=== PATIENT | female | born 1975 | race Caucasian/White ===

== ENCOUNTER 2018-05-12 17:48 | Inpatient (IN) | payer OTHER ==
[2018-05-12] MEDS ORDERED: IBUPROFEN 600 MG TAB PO STA (18:06)
[2018-05-12] MEDS ORDERED: SODIUM CHLORIDE 0.9% 500 ML IV STA ×2 (18:06→20:33)
[2018-05-12] MEDS ORDERED: SODIUM CHLORIDE 0.9% 1,000 ML IV STA ×2 (18:06→20:33)
[2018-05-12] MEDS ORDERED: ACETAMINOPHEN TAB 500 MG TAB PO STA (18:06)
--- NOTE | 2018-05-12 18:08 | ED ---
General Adult HPI - General Chief complaint: Fever Stated complaint: BACK PAIN, POSS KIDNEY ISSUE Time Seen by Provider: 05/12/18 18:06 Source: patient, RN notes reviewed, old records reviewed Mode of arrival: ambulatory Limitations: no limitations - History of Present Illness Initial comments: This is a 42-year-old female the ER for evaluation today. Patient complaining of fever, bilateral flank pain. Cough. No recent travel history no known sick contacts. No further treatment for symptoms. A she has history of diabetes high cholesterol. Her gallbladder has been removed - Related Data Home Medications Medication Instructions Recorded Confirmed Bisoprolol-Hctz 5-6.25 mg [Ziac 1 tab PO DAILY 04/15/15 05/12/18 5-6.25] LORazepam [Ativan] 0.5 mg PO DAILY PRN 04/15/15 05/12/18 metFORMIN HCL [Glucophage] 500 mg PO HS 04/15/15 05/12/18 Azithromycin [Zithromax Z-pack] See Taper PO DIRECTED 05/12/18 05/12/18 Loratadine [Claritin] 10 mg PO DAILY 05/12/18 05/12/18 Ondansetron [Zofran ODT] 4 mg PO BID PRN 05/12/18 05/12/18 glipiZIDE [Glucotrol] 10 mg PO AC-BID 05/12/18 05/12/18 Allergies Allergy/AdvReac Type Severity Reaction Status Date / Time cat dander Allergy Dyspnea Verified 05/12/18 18:33 dog dander Allergy Dyspnea Verified 05/12/18 18:33 Review of Systems ROS Statement: Those systems with pertinent positive or pertinent negative responses have been documented in the HPI. ROS Other: All systems not noted in ROS Statement are negative. Past Medical History Past Medical History: Diabetes Mellitus, Hypertension, Osteoarthritis (OA) Additional Past Medical History / Comment(s): endimetriosis, kidney stones. restless leg, History of Any Multi-Drug Resistant Organisms: ESBL Date of last positivie culture/infection: 01/26/16-ESBL E.coli MDRO Source:: Urine Past Surgical History: Cholecystectomy Additional Past Surgical History / Comment(s): surgery for endometriosis 1997 Past Anesthesia/Blood Transfusion Reactions: No Reported Reaction Additional Past Anesthesia/Blood Transfusion Reaction / Comment(s): pt declines any blood or blood products Past Psychological History: No Psychological Hx Reported, Anxiety Smoking Status: Current some day smoker Past Alcohol Use History: Occasional Past Drug Use History: None Reported - Past Family History Father Family Medical History: Hyperlipidemia Mother Additional Family Medical History / Comment(s): aneurism of heart General Exam Limitations: no limitations General appearance: alert, in no apparent distress Head exam: Present: atraumatic, normocephalic, normal inspection Eye exam: Present: normal appearance, PERRL, EOMI. Absent: scleral icterus, conjunctival injection, periorbital swelling ENT exam: Present: normal exam, mucous membranes moist Neck exam: Present: normal inspection. Absent: tenderness, meningismus, lymphadenopathy Respiratory exam: Present: normal lung sounds bilaterally. Absent: respiratory distress, wheezes, rales, rhonchi, stridor Cardiovascular Exam: Present: regular rate, normal rhythm, normal heart sounds. Absent: systolic murmur, diastolic murmur, rubs, gallop, clicks GI/Abdominal exam: Present: soft, normal bowel sounds. Absent: distended, tenderness, guarding, rebound, rigid Extremities exam: Present: normal inspection, full ROM, normal capillary refill. Absent: tenderness, pedal edema, joint swelling, calf tenderness Back exam: Present: normal inspection Neurological exam: Present: alert, oriented X3, CN II-XII intact Psychiatric exam: Present: normal affect, normal mood Skin exam: Present: warm, dry, intact, normal color. Absent: rash Course Vital Signs 05/12/18 05/12/18 05/12/18 17:58 19:04 19:06 Temperature 100.8 F H 102.3 F H Pulse Rate 114 H 101 H Respiratory 18 18 Rate Blood Pressure 169/89 160/91 O2 Sat by Pulse 94 L 97 Oximetry 05/12/18 05/12/18 19:38 20:05 Temperature 100.6 F H Pulse Rate 105 H Respiratory 15 Rate Blood Pressure 141/88 O2 Sat by Pulse 95 Oximetry EKG Findings - EKG Comments: EKG Findings:: EKG shows sinus tachycardia rate of 104, MO 156, QRS 102, QTc 457 Medical Decision Making - Lab Data Result diagrams: 05/12/18 18:24 05/12/18 18:24 Lab Results 05/12/18 05/12/18 05/12/18 Range/Units 18:24 18:24 18:24 WBC 10.3 (3.8-10.6) k/uL RBC 4.81 (3.80-5.40) m/uL Hgb 13.5 (11.4-16.0) gm/dL Hct 43.9 (34.0-46.0) % MCV 91.2 (80.0-100.0) fL MCH 28.1 (25.0-35.0) pg MCHC 30.8 L (31.0-37.0) g/dL RDW 14.1 (11.5-15.5) % Plt Count 245 (150-450) k/uL Neutrophils % (Manual) 72 % Band Neutrophils % 1 % Lymphocytes % (Manual) 14 % Monocytes % (Manual) 13 % Neutrophils # (Manual) 7.50 (1.3-7.7) k/uL Lymphocytes # (Manual) 1.44 (1.0-4.8) k/uL Monocytes # (Manual) 1.34 H (0-1.0) k/uL Nucleated RBCs 0 (0-0) /100 WBC Manual Slide Review Performed RBC Morphology Normal PT (9.0-12.0) sec INR (<1.2) APTT (22.0-30.0) sec Sodium 132 L (137-145) mmol/L Potassium 4.3 (3.5-5.1) mmol/L Chloride 98 (98-107) mmol/L Carbon Dioxide 20 L (22-30) mmol/L Anion Gap 14 mmol/L BUN 20 H (7-17) mg/dL Creatinine 1.00 (0.52-1.04) mg/dL Est GFR (CKD-EPI)AfAm 80 (>60 ml/min/1.73 sqM) Est GFR (CKD-EPI)NonAf 70 (>60 ml/min/1.73 sqM) Glucose 543 H* (74-99) mg/dL POC Glucose (mg/dL) (75-99) mg/dL POC Glu Marketing Business Analyst ID Plasma Lactic Acid Robbin 1.9 (0.7-2.0) mmol/L Calcium 9.8 (8.4-10.2) mg/dL Phosphorus 2.1 L (2.5-4.5) mg/dL Magnesium 2.2 (1.6-2.3) mg/dL Total Bilirubin 1.2 (0.2-1.3) mg/dL AST 35 (14-36) U/L ALT 56 H (9-52) U/L Alkaline Phosphatase 220 H (38-126) U/L Total Protein 5.6 L (6.3-8.2) g/dL Albumin 3.1 L (3.5-5.0) g/dL Urine Color Urine Appearance (Clear) Urine pH (5.0-8.0) Ur Specific [place] (1.001-1.035) Urine Protein (Negative) Urine Glucose (UA) (Negative) Urine Ketones (Negative) Urine Blood (Negative) Urine Nitrite (Negative) Urine Bilirubin (Negative) Urine Urobilinogen (<2.0) mg/dL Ur Leukocyte Esterase (Negative) Urine RBC (0-5) /hpf Urine WBC (0-5) /hpf Urine WBC Clumps (None) /hpf Ur Squamous Epith Cells (0-4) /hpf Urine Bacteria (None) /hpf Urine Mucus (None) /hpf 05/12/18 05/12/18 05/12/18 Range/Units 18:24 18:24 20:16 WBC (3.8-10.6) k/uL RBC (3.80-5.40) m/uL Hgb (11.4-16.0) gm/dL Hct (34.0-46.0) % MCV (80.0-100.0) fL MCH (25.0-35.0) pg MCHC (31.0-37.0) g/dL RDW (11.5-15.5) % Plt Count (150-450) k/uL Neutrophils % (Manual) % Band Neutrophils % % Lymphocytes % (Manual) % Monocytes % (Manual) % Neutrophils # (Manual) (1.3-7.7) k/uL Lymphocytes # (Manual) (1.0-4.8) k/uL Monocytes # (Manual) (0-1.0) k/uL Nucleated RBCs (0-0) /100 WBC Manual Slide Review RBC Morphology PT 9.5 (9.0-12.0) sec INR 1.0 (<1.2) APTT 21.8 L (22.0-30.0) sec Sodium (137-145) mmol/L Potassium (3.5-5.1) mmol/L Chloride (98-107) mmol/L Carbon Dioxide (22-30) mmol/L Anion Gap mmol/L BUN (7-17) mg/dL Creatinine (0.52-1.04) mg/dL Est GFR (CKD-EPI)AfAm (>60 ml/min/1.73 sqM) Est GFR (CKD-EPI)NonAf (>60 ml/min/1.73 sqM) Glucose (74-99) mg/dL POC Glucose (mg/dL) 350 H (75-99) mg/dL POC Glu Marketing Business Analyst ID Lisette Harper Plasma Lactic Acid [place]bin (0.7-2.0) mmol/L Calcium (8.4-10.2) mg/dL Phosphorus (2.5-4.5) mg/dL Magnesium (1.6-2.3) mg/dL Total Bilirubin (0.2-1.3) mg/dL AST (14-36) U/L ALT (9-52) U/L Alkaline Phosphatase (38-126) U/L Total Protein (6.3-8.2) g/dL Albumin (3.5-5.0) g/dL Urine Color Light Yellow Urine Appearance Cloudy H (Clear) Urine pH 6.0 (5.0-8.0) Ur Specific [place] 1.012 (1.001-1.035) Urine Protein Trace H (Negative) Urine Glucose (UA) 4+ H (Negative) Urine Ketones Negative (Negative) Urine Blood Large H (Negative) Urine Nitrite Negative (Negative) Urine Bilirubin Negative (Negative) Urine Urobilinogen <2.0 (<2.0) mg/dL Ur Leukocyte Esterase Large H (Negative) Urine RBC 18 H (0-5) /hpf Urine WBC 84 H (0-5) /hpf Urine WBC Clumps Many H (None) /hpf Ur Squamous Epith Cells 3 (0-4) /hpf Urine Bacteria Moderate H (None) /hpf Urine Mucus Rare H (None) /hpf Disposition Clinical Impression: Acute pyelonephritis, Fever Disposition: ADMITTED IP TO THIS [facility] Condition: Fair Is patient prescribed a controlled substance at d/c from ED?: No Referrals: Ruth Zavala MD [Primary Care Provider] - 1-2 days
[2018-05-12 18:43] LABS: Appearance,Urine Cloudy (Clear); Bacteria,Urine Moderate /hpf; Bilirubin,Urine Negative (Negative); Blood,Urine Large (Negative); Color,Urine Light Yellow; Glucose,Urine (UA) 4+ (Negative); Ketones,Urine Negative (Negative); Leukocyte Esterase,Urine Large (Negative); Mucus,Urine Rare /hpf; Nitrite,Urine Negative (Negative); Protein,Urine Trace (Negative); RBC,Urine 18 /hpf (0-5); Specific Gravity,Urine 1.012 (1.001-1.035); Squamous Epithelial Cell,Urine 3 /hpf (0-4); Urobilinogen,Urine <2.0 mg/dL (<2.0); WBC,Urine 84 /hpf (0-5)
[2018-05-12 18:49] LABS: Albumin 3.1 g/dL (3.5-5.0); Calcium 9.8 mg/dL (8.4-10.2); Magnesium 2.2 mg/dL (1.6-2.3); Phosphorus 2.1 mg/dL (2.5-4.5); Potassium 4.3 mmol/L (3.5-5.1); Total Bilirubin 1.2 mg/dL (0.2-1.3); Total Protein 5.6 g/dL (6.3-8.2)
[2018-05-12 18:54] LABS: Prothrombin Time 9.5 sec (9.0-12.0)
[2018-05-12 18:55] LABS: HCT 43.9 % (34.0-46.0); HGB 13.5 gm/dL (11.4-16.0); MCH 28.1 pg (25.0-35.0); MCHC 30.8 g/dL (31.0-37.0); MCV 91.2 fL (80.0-100.0); Mean Platelet Volume 8.7; Platelet Count 245 k/uL (150-450); RBC 4.81 m/uL (3.80-5.40); RDW 14.1 % (11.5-15.5); WBC 10.3 k/uL (3.8-10.6)
--- NOTE | 2018-05-12 18:57 | XR ---
EXAMINATION TYPE: XR chest 2V DATE OF EXAM: 05/12/2018 COMPARISON: 04/16/2015 HISTORY: 42-year-old female with pain TECHNIQUE: PA and lateral views FINDINGS: Heart normal size. Aorta and pulmonary vasculature within normal limits. Slight elevation of the righ t hemidiaphragm is unchanged. No consolidation or pleural effusion. Mild interstitial prominence is u nchanged. IMPRESSION: Changes without acute cardiopulmonary process.
[2018-05-12] MEDS ORDERED: INSULIN REGULAR 100 UNIT/ML VIAL SQ ONE ×2 (19:14→19:32)
[2018-05-12] MEDS ORDERED: INSULIN REGULAR 100 UNIT/ML VIAL IV ONE (19:14)
[2018-05-12 19:15] LABS: Partial Thromboplastin Time 21.8 sec (22.0-30.0)
[2018-05-12] MEDS ORDERED: cefTRIAXone 2,000 MG in SODIUM CHLORIDE 0.9% 100 ML IVPB STA (19:20)
[2018-05-12] MEDS ORDERED: cefTRIAXone IN SWFI 2,000 MG/20 ML SYRINGE IVP STA (19:22)
[2018-05-12 19:24] LABS: Band Neutrophils % 1 %; Lymphocytes # (M) 1.44 k/uL (1.0-4.8); Monocytes # (M) 1.34 k/uL (0-1.0); Neutrophils % (M) 72 %; Nucleated Red Blood Cells 0 /100 WBC (0-0); Total Cells Counted 100
[2018-05-12 20:19] LABS: Glucose,Whole Blood 350 mg/dL (75-99)
--- NOTE | 2018-05-12 20:26 | CT ---
EXAMINATION TYPE: CT abdomen pelvis wo con DATE OF EXAM: 05/12/2018 COMPARISON: 01/25/2016 HISTORY: 42-year-old female Pain CT DLP: 1273 mGycm. Automated exposure control for dose reduction was used. TECHNIQUE: Contiguous axial scanning of the abdomen and pelvis without IV contrast. Coronal and sagit michelle reconstructions performed. FINDINGS: Heart normal size without pericardial effusion. Lung bases show strandy atelectasis. No pleural effus ion. Liver enlarged measuring 22.5 cm. Mildly diminished attenuation. Cholecystectomy clips. Adrenal glands, spleen, and pancreas show no gross abnormality by noncontrast CT. Borderline and mildly enlarged retroperitoneal lymph nodes measure up to 1.1 cm left periaortic regio n on a 1.2 cm precaval, 1.1 cm right retrocrural. These are increased from 01/25/2016. Bilateral perinephric stranding is present with mild bilateral pelvocaliectasis but no suspicious jacqueline cification seen along the course of either ureter. Punctate 1 mm nonobstructive calculus mid to lower pole left kidney. No dilated small bowel, free fluid, or free air. Mild stool burden. No pericolonic inflammatory change. Bladder is urine distended. Multiple pelvic phleboliths. A tampon is in place. No abnormal fluid su ection in the pelvis or pelvic lymphadenopathy. Uterus and both ovaries are visualized. Bones: Mild degenerative changes of the hips. No osseous destructive process. IMPRESSION: 1. Prominent bilateral perinephric stranding and mild bilateral pelvicaliectasis. Findings could rep resent sequela of recently passed stones or infection/pyelonephritis. Clinically correlate. 2. Punctate nonobstructive 1 mm left renal calculus. 3. Mildly enlarged retroperitoneal lymph nodes and an enlarged right retrocrural lymph node measurin g up to 1.2 cm, increased from 2016. Findings may be reactive/post inflammatory. 3 month follow-up CT to ensure stability/resolution.
[2018-05-12] MEDS ORDERED: SODIUM CHLORIDE 0.9% 1,000 ML IV ONE (20:32)
[2018-05-12] MEDS ORDERED: MORPHINE SULFATE 4 MG/ML SYRINGE IVP STA (20:33)
[2018-05-12] MEDS ORDERED: cefTRIAXone IN SWFI 1,000 MG/10 ML SYRINGE IVP SCH (21:00)
[2018-05-12 22:45] LABS: Glucose,Whole Blood 409 mg/dL (75-99)
[2018-05-13] MEDS ORDERED: PIPERACILLIN-TAZOBACTAM 3.375 GM in DEXTROSE/WATER 1 50ML.BAG IVPB SCH
[2018-05-13] MEDS: MORPHINE SULFATE 4 MG/ML SYRINGE IVP PRN ×5 (01:08→20:17)
[2018-05-13] MEDS: SODIUM CHLORIDE 0.9% 1,000 ML IV SCH ×3 (03:35→18:21)
[2018-05-13] MEDS: PIPERACILLIN-TAZOBACTAM 3.375 GM in DEXTROSE/WATER 1 50ML.BAG IVPB SCH ×3 (04:17→21:17)
[2018-05-13] MEDS ORDERED: ONDANSETRON 4 MG/2 ML VIAL IVP PRN (04:44)
[2018-05-13 07:22] LABS: Glucose,Whole Blood 396 mg/dL (75-99)
[2018-05-13] MEDS: INSULIN ASPART 100 UNIT/ML 1 ML 10 ML VIAL SQ SCH ×4 (07:30→21:24)
--- NOTE | 2018-05-13 08:47 | US ---
EXAMINATION TYPE: US kidneys/renal and bladder DATE OF EXAM: 05/13/2018 COMPARISON: 05/12/2018 CT abdomen pelvis CLINICAL HISTORY: ?pyleonephritis ?renal calculus - as per Dr Tamra . Hx renal infections. EXAM MEASUREMENTS: Right Kidney: 13.1 x 5.7 x 6.5 cm Left Kidney: 12.9 x 6.9 x 6.9 cm Right Kidney: No hydronephrosis or masses seen Left Kidney: No hydronephrosis or masses seen. The known 1 mm nonobstructive calculus in the mid to l ower pole of the left kidney is not seen sonographically. This was present on the prior CT abdomen pe lvis dated 05/12/2018. Bladder: distended, wnl as visualized Bilateral Jets not seen There is no evidence for hydronephrosis at this point in time. No nephrolithiasis is seen. No navdeep s are identified. The urinary bladder is anechoic. Bilateral ureteral jets are seen. IMPRESSION: 1. No hydronephrosis. The known left 1 mm renal calculus is not visualized sonographically. 2. No focal areas of decreased renal perfusion to indicate pyelonephritis sonographically, however th ere is increase sensitivity with enhanced CT.
[2018-05-13] MEDS ORDERED: cefTRIAXone IN SWFI 1,000 MG/10 ML SYRINGE IVP SCH (09:00)
[2018-05-13] MEDS: glipiZIDE 10 MG TAB PO SCH ×2 (09:26→17:26)
[2018-05-13] MEDS: BISOPROLOL-HCTZ 5-6.25 MG 1 EACH TAB PO SCH (10:33)
[2018-05-13] MEDS ORDERED: LORazepam 0.5 MG TAB PO PRN (10:58)
[2018-05-13] MEDS ORDERED: TEMAZEPAM 15 MG CAP PO PRN (10:59)
[2018-05-13] MEDS ORDERED: ALPRAZolam 0.25 MG TAB PO PRN (10:59)
[2018-05-13 11:16] LABS: Glucose,Whole Blood 366 mg/dL (75-99)
[2018-05-13] MEDS: PANTOPRAZOLE 40 MG/10 ML VIAL IVP SCH (11:35)
[2018-05-13] MEDS: HEPARIN SODIUM,PORCINE 5,000 UNIT/ML 1 ML VIAL SQ SCH ×2 (11:36→21:24)
[2018-05-13] MEDS: INSULIN DETEMIR 100 UNIT/ML 10 ML VIAL SQ SCH (11:36)
[2018-05-13] MEDS: NICOTINE 14MG/24HR PATCH TRANSDERM SCH (11:43)
[2018-05-13 11:53] LABS: Hemoglobin A1C 13.8 % (4.0-6.0)
--- NOTE | 2018-05-13 12:02 | HP ---
HISTORY AND PHYSICAL DATE OF SERVICE: 05/13/2018 CHIEF COMPLAINTS: Fever and back pain. HISTORY OF PRESENT ILLNESS: This 42-year-old woman with a past medical history of diabetes, hypertension, history of DJD, endometriosis being followed by Dr. Zavala in the outpatient setting, was complaining of back pain and fever last night. The pain was both low and both sides, left more than the right with some radiation on the left flank also. Patient also has some cough. Patient came to [facility]. Patient was found to be evidence of pyelonephritis. CT scan of the abdomen showed bilateral standing and as well as mildly enlarged retroperitoneal lymph nodes also slightly increased from 2006, possibly related to inflammation, to be followed up in the outpatient setting and ultrasound did not show the known left 1 mm renal calculus as well. The patient admitted and started on broad-spectrum IV antibiotics. There is no history any headache, loss of consciousness, chest pain, palpitations, shortness of breath, hematochezia or melena at this time. PAST MEDICAL HISTORY: Diabetes, hypertension, DJD, history of endometriosis, nephrolithiasis, anxiety, smoking. MEDICATION: 1. Glucophage 500 mg q.h.s. 2. Glucotrol 10 mg b.i.d. 3. Zofran 4 mg b.i.d. p.r.n. 4. Claritin 10 mg daily. 5. Ativan 0.5 mg daily p.r.n. 6. Ziac 5/6.25 mg p.o. daily. 7. Zithromax p.r.n. ALLERGIES: CAT DANDER AND DOG DANDER. FAMILY HISTORY: History of eye disorder, hyperlipidemia, cataracts. SOCIAL HISTORY: History of alcohol, history of smoking. REVIEW OF SYSTEMS: ENT: No diminished hearing and vision. CARDIOVASCULAR: No angina. RESPIRATORY: No cough. GI: No nausea. : No dysuria. NERVOUS SYSTEM: No numbness or weakness. ALLERGY/IMMUNOLOGY: No history of asthma. MUSCULOSKELETAL: As mentioned. HEMATOLOGY: As mentioned earlier. ENDOCRINE: As mentioned. CONSTITUTIONAL: As mentioned earlier. DERMATOLOGY: Negative. RHEUMATOLOGY: Negative. PSYCHIATRY: As mentioned earlier. PHYSICAL EXAMINATION: Alert, oriented x3. Pulse 97, blood pressure 127/84, respiration 14, temperature 99.9, pulse ox 98% on room air. HEENT: Conjunctivae normal. Oral mucosa moist. NECK: No jugular venous distention. No carotid bruit. No lymph node enlargement. CARDIOVASCULAR: S1, S2. RESPIRATORY: Breath sounds diminished in the bases. No rhonchi, no crackles. ABDOMEN: Soft. Mild diffuse tenderness present. No guarding. No rigidity. No mass palpable. LEGS: No edema, no swelling. NERVOUS SYSTEM: Higher functions as mentioned earlier. Moves all 4 limbs. No focal motor sensory deficits. LYMPHATICS: No lymphadenopathy in the neck, axillae, groin. SKIN: No ulcer, rash, bleeding. LABS: WBC 10.2, hemoglobin 13.2, sodium 132, glucose 543, and 396 and alkaline phosphatase 220. UA noted. ASSESSMENT: 1. Acute pyelonephritis with severe abdominal pain and back pain. 2. Possible nephrolithiasis. 3. Increased ALT. 4. Diabetes mellitus type 2 uncontrolled. 5. Hyponatremia. 6. Hypertension. 7. Degenerative joint disease. 8. Endometriosis. 9. History of cholecystectomy. 10.History of anxiety. 11.History of nicotine dependence. 12.Obesity with body mass index of 43.5. RECOMMENDATIONS AND DISCUSSION: This 42-year-old woman who presented with multiple complex medical issues, will monitor the patient closely. Continue the current management and symptomatic treatment. Pain medications, broad-spectrum IV antibiotics, follow the cultures. Infectious Disease and Nephrology has been consulted. Otherwise, we will continue to monitor blood sugars closely and I would also recommend starting Lantus and monitor blood sugars closely. Smoking cessation has been advised. Habitrol will be ordered. The overall prognosis guarded because of multiple complex medical issues. Medication reconciliation was also done. See orders for details. The patient understands and agrees. A copy of dictation forwarded to Dr. Zavala who is the primary physician. MMODL / IJN: [id number] /
[2018-05-13] MEDS: ACETAMINOPHEN TAB 325 MG TAB PO PRN ×2 (14:31→20:18)
[2018-05-13 15:27] VITALS: BMI 43.5
[2018-05-13 16:58] LABS: Glucose,Whole Blood 260 mg/dL (75-99)
--- NOTE | 2018-05-13 20:08 | P.CONS ---
History of Present Illness - Reason for Consult Consult date: 05/13/18 - Chief Complaint fever - History of Present Illness 42-year-old female who has a known history of diabetes and obesity follows in the outpatient clinic with her primary physician. She relates that she's not been feeling well for quite some time and has been trying to determine if her blood sugars have been part of the problem. She has been on metformin therapy which she relates does not make her feel well and has not been giving her good control of her blood sugars. She now presents to Hospital complaining of significant bilateral flank pain associate with fevers and chills as well as nausea and emesis, patient also was having dysuria. Endocrine the patient is feeling quite poorly still. This is the worst that she has felt in many years. She has markedly elevated blood sugar greater than 500 admission associated with dehydration and a urinary infection and flank pain. Appetite is poor but improving since she has had significant hydration and improvement of her blood sugar. She is very anxious about will occur when she goes to home. She relates that she lives in a family home and cares for her father although he has not an invalid. She does work for an [employer] as well as a local [employer]. Review of Systems 42-year-old woman feels poorly HEENT: Relates that her headache is improved since coming to hospital and has only minimal blurring of her vision Denies sinus or mouth discomforts. Denies neck stiffness or pain. Denies significant oral cavity pain. Denies difficulty on swallowing. Lungs: Denies significant shortness of breath, cough, sputum production, or hemoptysis. Cardiovascular: Denies significant shortness of breath, chest pain, chest wall pain, orthopnea, dyspnea on exertion, syncope Gastrointestinal: The severe nausea and emesis have improved since coming to hospital. She has no hematemesis melena or hematochezia. Musculoskeletal: denies significant myalgias or arthralgias. No new joint swelling. Denies new back pain. Skin: Denies new rash or lesions. No new ulcers or wounds are related.. Neuro: Denies any new onset weakness or difficulty with ambulation. Denies falls or seizures. Psychiatric: Is having some anxiety with her illness but does not complain of depression Endocrine: With her illness she became very fatigued and has weight gain. Past Medical History Past Medical History: Diabetes Mellitus, Hypertension, Osteoarthritis (OA) Additional Past Medical History / Comment(s): endimetriosis, kidney stones. restless leg, left temporal lobe abnormality History of Any Multi-Drug Resistant Organisms: ESBL Year Discovered:: 01/26/16-ESBL E.coli MDRO Source:: Urine Past Surgical History: Cholecystectomy Additional Past Surgical History / Comment(s): surgery for endometriosis 1997, kidney stones removed 2012 Past Anesthesia/Blood Transfusion Reactions: No Reported Reaction Additional Past Anesthesia/Blood Transfusion Reaction / Comm: pt declines any blood or blood products. Patient would rather not have any blood products. Past Psychological History: Anxiety Additional Psychological History / Comment(s): She is single and relates that she's never been . She has no children. Works in [employer] home. Tobacco smoker till last week. Denies significant alcohol or recreational drug use. No experience. No international travel. No animal exposures Smoking Status: Current some day smoker Past Alcohol Use History: Occasional Additional Past Alcohol Use History / Comment(s): less than 5 per month Past Drug Use History: None Reported - Past Family History Father Family Medical History: Eye Disorder, Hyperlipidemia Additional Family Medical History / Comment(s): cataracts Mother Additional Family Medical History / Comment(s): of aneurysm of heart 1995 Medications and Allergies Home Medications and Allergies Comment(s): Current Medications Acetaminophen (Tylenol Tab) 325 mg PO Q6HR PRN PRN Reason: Fever and/ or Pain Last Admin: 05/13/18 14:31 Dose: 325 mg Hydrocodone Bitart/Acetaminophen ([place] 5-325) 1 each PO Q6HR PRN PRN Reason: Pain Alprazolam (Xanax) 0.25 mg PO TID PRN PRN Reason: Anxiety Bisoprolol Fumarate (Ziac 5-6.25) 1 each PO DAILY [facility] Last Admin: 05/13/18 10:33 Dose: 1 each Glipizide (Glucotrol) 10 mg PO AC-BID [facility] Last Admin: 05/13/18 17:26 Dose: 10 mg Heparin Sodium (Porcine) (Heparin) 5,000 unit SQ Q12HR [facility] Last Admin: 05/13/18 11:36 Dose: 5,000 unit Sodium Chloride (Saline 0.9%) 1,000 mls @ 100 mls/hr IV .Q10H [facility] Last Admin: 05/13/18 18:21 Dose: 100 mls/hr Piperacillin/Tazobactam/ (Dextrose 3.375 gm/ IV Solution) 50 mls @ 12.5 mls/hr IVPB Q8HR@0400,1200,2000 [facility] Last Admin: 05/13/18 11:54 Dose: 12.5 mls/hr Insulin Aspart (Novolog) 0 unit SQ ACHS [facility]; Protocol Last Admin: 05/13/18 17:26 Dose: 6 unit Insulin Detemir (Levemir) 20 unit SQ DAILY [facility] Last Admin: 05/13/18 11:36 Dose: 20 unit Loratadine (Claritin) 10 mg PO DAILY [facility] Lorazepam (Ativan) 0.5 mg PO DAILY PRN PRN Reason: Anxiety Metformin HCl (Glucophage) 500 mg PO HS [facility] Morphine Sulfate (Morphine Sulfate (Inj)) 4 mg IVP Q4HR PRN PRN Reason: Moderate Pain Last Admin: 05/13/18 16:30 Dose: 4 mg Nicotine (Habitrol 14mg/24hr Patch) 1 patch TRANSDERM DAILY [facility] Last Admin: 05/13/18 11:43 Dose: Not Given Ondansetron HCl (Zofran) 4 mg IVP Q6HR PRN PRN Reason: Nausea And Vomiting Pantoprazole Sodium (Protonix) 40 mg IVP DAILY [facility] Last Admin: 05/13/18 11:35 Dose: 40 mg Temazepam (Restoril) 15 mg PO HS PRN PRN Reason: Insomnia Home Medications Medication Instructions Recorded Confirmed Type Bisoprolol-Hctz 5-6.25 mg [Ziac 1 tab PO DAILY 04/15/15 05/12/18 History 5-6.25] LORazepam [Ativan] 0.5 mg PO DAILY PRN 04/15/15 05/12/18 History metFORMIN HCL [Glucophage] 500 mg PO HS 04/15/15 05/12/18 History Azithromycin [Zithromax Z-pack] See Taper PO DIRECTED 05/12/18 05/12/18 History Loratadine [Claritin] 10 mg PO DAILY 05/12/18 05/12/18 History Ondansetron [Zofran ODT] 4 mg PO BID PRN 05/12/18 05/12/18 History glipiZIDE [Glucotrol] 10 mg PO AC-BID 08/05/18 08/05/18 History Allergies Allergy/AdvReac Type Severity Reaction Status Date / Time cat dander Allergy Dyspnea Verified 05/12/18 18:33 dog dander Allergy Dyspnea Verified 05/12/18 18:33 Physical Exam Vitals: Vital Signs Temp Pulse Pulse Resp BP BP Pulse Ox 05/13/18 14:29 91 14 117/78 05/13/18 14:06 100 F H 98 16 153/113 91 L 05/13/18 07:00 99.9 F H 97 14 127/84 93 L 05/13/18 03:25 98.7 F 68 16 122/68 98 05/13/18 00:11 99 F 65 17 139/68 95 05/12/18 20:56 90 16 138/82 100 05/12/18 20:51 100.6 F H 05/12/18 20:05 100.6 F H Intake and Output 05/13/18 05/13/18 05/13/18 06:59 14:59 22:59 Intake Total 1630 870 Balance 1630 870 Intake: Intake, IV Titration 550 750 Amount Piperacillin-Tazobactam 3 50 50 .375 gm In Dextrose/Water 1 50ml.bag @ 12.5 mls/hr IVPB Q8HR [facility] Rx#: [id number] Sodium Chloride 0.9% 1, 700 000 ml @ 100 mls/hr IV . Q10H [facility] Rx#:[id number] Sodium Chloride 0.9% 500 500 ml @ 999 mls/hr IV .Q31M [facility] Rx#:[id number] Oral 1080 120 Other: Voiding Method Toilet # Voids 2 2 Weight 126.099 kg 42-year-old female who suffers from significant obesity and still feels very poorly. HEENT: Anicteric conjunctiva are pink and moist nasal mucosa grossly intact without significant lesions, there is no thrush. There are no significant oral lesions Neck: The neck is supple without significant lymphadenopathy or thyromegaly. Lungs: Good bilateral air entry without significant crackles or wheezing. There is no significant bronchial sounds. There is no egophony or dullness. Heart: Regular rate and rhythm with an audible S1-S2, no S3 no S4. There is no significant murmur click or rub, PMI was nondisplaced. Abdomen: Obese, Positive bowel sounds soft and nontender without palpable masses or organomegaly. There was no guarding or rebound. Extremities: The upper extremities have excellent pulses they are symmetric, no significant petechiae or telangiectasia. No splinter hemorrhages were noted. Lower extremities have trace bilateral pedal edema without significant open ulcerations at this time Neuro: Awake alert oriented to person place and time. There are no acute new gross focal sensory motor deficits. Results CBC & Chem 7: 05/12/18 18:24 05/12/18 18:24 Labs: Abnormal Lab Results - Last 24 Hours (Table) 05/12/18 05/12/18 05/12/18 Range/Units 18:24 20:16 22:42 POC Glucose (mg/dL) 350 H 409 H (75-99) mg/dL Hemoglobin A1c 13.8 H (4.0-6.0) % 05/13/18 05/13/18 05/13/18 Range/Units 06:44 11:12 16:44 POC Glucose (mg/dL) 396 H 366 H 260 H (75-99) mg/dL Hemoglobin A1c (4.0-6.0) % Microbiology - Last 24 Hours (Table) 05/13/18 00:08 Urine Culture - Preliminary Urine,Clean Catch 05/12/18 18:24 Urine Culture - Preliminary Urine,Voided Laboratory Results WBC 10.3 k/uL (3.8-10.6) 05/12/18 18:24 RBC 4.81 m/uL (3.80-5.40) 05/12/18 18:24 Hgb 13.5 gm/dL (11.4-16.0) 05/12/18 18:24 Hct 43.9 % (34.0-46.0) 05/12/18 18:24 MCV 91.2 fL (80.0-100.0) 05/12/18 18:24 MCH 28.1 pg (25.0-35.0) 05/12/18 18:24 MCHC 30.8 g/dL (31.0-37.0) L 05/12/18 18:24 RDW 14.1 % (11.5-15.5) 05/12/18 18:24 Plt Count 245 k/uL (150-450) 05/12/18 18:24 Neutrophils % (Manual) 72 % 05/12/18 18:24 Band Neutrophils % 1 % 05/12/18 18:24 Lymphocytes % (Manual) 14 % 05/12/18 18:24 Monocytes % (Manual) 13 % 05/12/18 18:24 Neutrophils # (Manual) 7.50 k/uL (1.3-7.7) 05/12/18 18:24 Lymphocytes # (Manual) 1.44 k/uL (1.0-4.8) 05/12/18 18:24 Monocytes # (Manual) 1.34 k/uL (0-1.0) H 05/12/18 18:24 Nucleated RBCs 0 /100 WBC (0-0) 05/12/18 18:24 Manual Slide Review Performed 05/12/18 18:24 RBC Morphology Normal 05/12/18 18:24 PT 9.5 sec (9.0-12.0) 05/12/18 18:24 INR 1.0 (<1.2) 05/12/18 18:24 APTT 21.8 sec (22.0-30.0) L 05/12/18 18:24 Sodium 132 mmol/L (137-145) L 05/12/18 18:24 Potassium 4.3 mmol/L (3.5-5.1) 05/12/18 18:24 Chloride 98 mmol/L (98-107) 05/12/18 18:24 Carbon Dioxide 20 mmol/L (22-30) L 05/12/18 18:24 Anion Gap 14 mmol/L 05/12/18 18:24 BUN 20 mg/dL (7-17) H 05/12/18 18:24 Creatinine 1.00 mg/dL (0.52-1.04) 05/12/18 18:24 Est GFR (CKD-EPI)AfAm 80 (>60 ml/min/1.73 sqM) 05/12/18 18:24 Est GFR (CKD-EPI)NonAf 70 (>60 ml/min/1.73 sqM) 05/12/18 18:24 Glucose 543 mg/dL (74-99) H* 05/12/18 18:24 POC Glucose (mg/dL) 260 mg/dL (75-99) H 05/13/18 16:44 POC Glu Flavor Room Worker ID 05/13/18 16:[address] Glu mg/dL 349 05/12/18 18:24 Hemoglobin A1c 13.8 % (4.0-6.0) H 05/12/18 18:24 Plasma Lactic Acid [place] 1.9 mmol/L (0.7-2.0) 05/12/18 18:24 Calcium 9.8 mg/dL (8.4-10.2) 05/12/18 18:24 Phosphorus 2.1 mg/dL (2.5-4.5) L 05/12/18 18:24 Magnesium 2.2 mg/dL (1.6-2.3) 05/12/18 18:24 Total Bilirubin 1.2 mg/dL (0.2-1.3) 05/12/18 18:24 AST 35 U/L (14-36) 05/12/18 18:24 ALT 56 U/L (9-52) H 05/12/18 18:24 Alkaline Phosphatase 220 U/L (38-126) H 05/12/18 18:24 Total Protein 5.6 g/dL (6.3-8.2) L 05/12/18 18:24 Albumin 3.1 g/dL (3.5-5.0) L 05/12/18 18:24 HCG, Qual Not Detected 05/12/18 18:24 Urine Color Light Yellow 05/12/18 18:24 Urine Appearance Cloudy (Clear) H 05/12/18 18:24 Urine pH 6.0 (5.0-8.0) 05/12/18 18:24 Ur Specific [place] 1.012 (1.001-1.035) 05/12/18 18:24 Urine Protein Trace (Negative) H 05/12/18 18:24 Urine Glucose (UA) 4+ (Negative) H 05/12/18 18:24 Urine Ketones Negative (Negative) 05/12/18 18:24 Urine Blood Large (Negative) H 05/12/18 18:24 Urine Nitrite Negative (Negative) 05/12/18 18:24 Urine Bilirubin Negative (Negative) 05/12/18 18:24 Urine Urobilinogen <2.0 mg/dL (<2.0) 05/12/18 18:24 Ur Leukocyte Esterase Large (Negative) H 05/12/18 18:24 Urine RBC 18 /hpf (0-5) H 05/12/18 18:24 Urine WBC 84 /hpf (0-5) H 05/12/18 18:24 Urine WBC Clumps Many /hpf (None) H 05/12/18 18:24 Ur Squamous Epith Cells 3 /hpf (0-4) 05/12/18 18:24 Urine Bacteria Moderate /hpf (None) H 05/12/18 18:24 Urine Mucus Rare /hpf (None) H 05/12/18 18:24 Microbiology 05/12/18 18:24 Urine,Voided Urine Culture - Preliminary Gram Neg Bacilli 05/13/18 00:08 Urine,Clean Catch Urine Culture - Preliminary Assessment and Plan (1) Acute pyelonephritis Narrative/Plan: 42-year-old female who has a long-standing history of obesity and poorly controlled diabetes mellitus type 2 presents to hospital with evidence of significant sepsis from the urinary tract infection and what appears to be polynephritis. The patient started to feel somewhat better since she has been brought to the hospital and receiving hydration, glucose control and antibiotic therapy. At this time gram-negative bacilli have been found in the urine culture and blood cultures are pending at this time. Receiving intravenous antibiotic therapy with Zosyn at this time given the prior urine culture given the evidence of prior cultures that show evidence of resistance to quinolones, sulfa as well as Rocephin. We'll monitor the patient and her response to therapy, may require outpatient intravenous antibiotic therapy if there are no oral options for her infection. She understands the importance of glucose control. However she apparently did not do well with the dietitian today, relating that she will not be told what to do her scolded because of her dietary choices by anybody. She 43-year-old woman and doesn't have to listen to anybody. The patient is counseled that it would be very worthwhile to at least try to have an open mind to the diabetes team to improve her glucose control and overall health. With hydration the patient's current hyperglycemia is improving, she is not having evidence of significant acute renal failure but hemoglobin A1c is at 13.8. Current Visit: Yes Status: Acute Code(s): N10 - ACUTE PYELONEPHRITIS SNOMED Code(s): 82626265 (2) Gram-negative infection Current Visit: Yes Status: Acute Code(s): A49.9 - BACTERIAL INFECTION, UNSPECIFIED SNOMED Code(s): 162723716 (3) Uncontrolled type 2 diabetes mellitus Current Visit: Yes Status: Acute Code(s): E11.65 - TYPE 2 DIABETES MELLITUS WITH HYPERGLYCEMIA SNOMED Code(s): 79303600 (4) Obesity Current Visit: Yes Status: Acute Code(s): E66.9 - OBESITY, UNSPECIFIED SNOMED Code(s): 618567806
[2018-05-13 20:45] LABS: Glucose,Whole Blood 257 mg/dL (75-99)
[2018-05-13] MEDS: metFORMIN 500 MG TAB PO SCH (21:24)
[2018-05-14] MEDS: MORPHINE SULFATE 4 MG/ML SYRINGE IVP PRN ×6 (00:18→23:32)
[2018-05-14] MEDS: HYDROcodone/APAP 5-325MG 1 EACH TAB PO PRN ×2 (01:00→07:34)
--- NOTE | 2018-05-14 02:35 | CONS ---
CONSULTATION DATE OF SERVICE: 05/13/2018. REASON FOR CONSULT: Nephrolithiasis. HISTORY OF PRESENT ILLNESS: The patient is a 42-year-old female who was admitted yesterday from the emergency room with complaints of severe back pain. She also had fever. She had bilateral flank pain. It was radiating to the groin. The patient denied any obvious blood in her urine. She has had a history of kidney stones. PAST MEDICAL HISTORY: Type 2 diabetes, hypertension, osteoarthritis, endometriosis, nephrolithiasis, restless legs syndrome, history of UTI in 2016, ESBL E coli. PAST SURGICAL HISTORY: Cholecystectomy, surgery for endometriosis. SOCIAL HISTORY: Patient is a smoker. No history of drug abuse or alcohol abuse. MEDICATIONS: Medications at home prior to admission included: 1. Glucophage. 2. Zithromax. 3. Claritin. 4. Glucotrol. 5. Ativan. 6. Bisoprolol hydrochlorothiazide which is Ziac. ALLERGIES: Include no medications. The patient is allergic to dogs and cats. REVIEW OF SYSTEMS: As per HPI. Other systems negative. EXAMINATION: Patient is currently comfortable. She is sleeping. She is not in any acute distress. Blood pressure is 127/84 this morning, heart rate 97 per minute, she has a temp of 99.9. Examination of the heart S1, S2. Examination of lungs, bilateral breath sounds are heard. Abdomen is soft. Mild tenderness noted in the lower abdomen. Mild flank pain is noted bilaterally. Examination of lower extremities shows no significant edema. [place] exam is grossly intact. LABS: Reveal a serum creatinine of 1.0, BUN 20, sodium 132, potassium 4.3, hemoglobin 13.5 g/dL, calcium 9.8, phosphorus 2.1. UA shows 4+ glucose, protein trace, WBC clumps and WBCs were noted. Urine culture is growing Gram-negative bacilli. CT scan shows prominent bilateral perinephric stranding with mild bilateral pelviectasis, nonobstructive 1 mm left renal calculus. ASSESSMENT: 1. Nephrolithiasis with underlying urinary tract infection with mild bilateral pelviectasis noted. Currently maintained on IV antibiotics. I will continue with IV hydration as well. I agree with ID consult. If pain does not improve, we will proceed with Urology consult as well. 2. Nephrolithiasis. The patient will need a 24-hour urine for stone profile. This will be done down the road once the acute episode has subsided. In the meantime, patient is advised regarding aggressive hydration and avoiding high salt diet. 3. Type 2 diabetes. 4. Obesity. 5. Hypertension, occasionally uncontrolled secondary to pain. PLAN: Continue with IV fluids. Continue with antibiotics. The patient will need 24-hour urine for stone profile down the road as outpatient. Consider Urology consult if symptoms not improved in the next day. Thank you for this consultation. We will continue to follow the patient with you during her hospitalization. MMODL / IJN: [id number] /
[2018-05-14] MEDS: SODIUM CHLORIDE 0.9% 1,000 ML IV SCH ×2 (03:41→18:42)
[2018-05-14] MEDS: PIPERACILLIN-TAZOBACTAM 3.375 GM in DEXTROSE/WATER 1 50ML.BAG IVPB SCH ×3 (03:41→20:55)
[2018-05-14 06:53] LABS: Glucose,Whole Blood 223 mg/dL (75-99)
[2018-05-14 07:20] LABS: Anion Gap 12 mmol/L; Blood Urea Nitrogen 17 mg/dL (7-17); Calcium 9.6 mg/dL (8.4-10.2); Carbon Dioxide 18 mmol/L (22-30); Chloride 106 mmol/L (98-107); Glucose 213 mg/dL (74-99); Sodium 136 mmol/L (137-145)
[2018-05-14] MEDS: glipiZIDE 10 MG TAB PO SCH ×2 (07:28→18:27)
[2018-05-14] MEDS: INSULIN ASPART 100 UNIT/ML 1 ML 10 ML VIAL SQ SCH ×4 (07:28→21:03)
[2018-05-14 07:43] LABS: HCT 37.1 % (34.0-46.0); HGB 12.1 gm/dL (11.4-16.0); MCH 29.6 pg (25.0-35.0); MCHC 32.5 g/dL (31.0-37.0); MCV 90.9 fL (80.0-100.0); Mean Platelet Volume 7.6; Platelet Count 302 k/uL (150-450); RBC 4.08 m/uL (3.80-5.40); RDW 14.2 % (11.5-15.5); WBC 13.3 k/uL (3.8-10.6)
[2018-05-14] MEDS: INSULIN DETEMIR 100 UNIT/ML 10 ML VIAL SQ SCH (09:12)
[2018-05-14] MEDS: HEPARIN SODIUM,PORCINE 5,000 UNIT/ML 1 ML VIAL SQ SCH ×2 (09:14→20:34)
[2018-05-14] MEDS: BISOPROLOL-HCTZ 5-6.25 MG 1 EACH TAB PO SCH (09:16)
[2018-05-14] MEDS: LORATADINE 10 MG TAB PO SCH (09:17)
[2018-05-14] MEDS: PANTOPRAZOLE 40 MG/10 ML VIAL IVP SCH ×2 (09:25→20:36)
[2018-05-14 10:52] LABS: Band Neutrophils % 1 %; Eosinophils # (M) 0.27 k/uL (0-0.7); Lymphocytes # (M) 1.46 k/uL (1.0-4.8); Metamyelocytes # (M) 0.13 k/uL (0); Metamyelocytes % 1 %; Monocytes # (M) 1.86 k/uL (0-1.0); Myelocytes # (M) 0.13 k/uL (0); Myelocytes % 1 %; Neutrophils % (M) 70 %; Nucleated Red Blood Cells 0 /100 WBC (0-0); Total Cells Counted 200
[2018-05-14 10:53] LABS: Toxic Granulation Present
[2018-05-14 11:59] LABS: Glucose,Whole Blood 196 mg/dL (75-99)
--- NOTE | 2018-05-14 13:03 | PN ---
PROGRESS NOTE DATE OF SERVICE: 05/14/2018 This 42-year-old woman who was admitted with acute pyelonephritis also complaining of back pain at this time. Patient also had epigastric pain also. Cultures are showing gram-negative bacilli. Nephrology and Infectious Disease is following the patient closely. No chest pain. No palpitations. No fever. PHYSICAL EXAMINATION: On exam, alert and oriented x3. The pulse is 94, blood pressure 133/89, respiration 16, temperature 100.1, pulse ox 91% on room air. HEENT: Conjunctivae normal. Oral mucosa moist. NECK: No jugular venous distention. No carotid bruit. No lymph node enlargement. CARDIOVASCULAR: S1 and s2 muffled. RESPIRATORY: Breath sounds diminished at the bases. No rhonchi, no crackles. ABDOMEN: Soft, minimal diffuse tenderness in the left loin area and some discomfort in the epigastrium. No guarding. No rigidity. No mass palpable. Bowel sounds present. LEGS: No edema, no swelling. NERVOUS SYSTEM: Higher functions as mentioned earlier. Moves all 4 limbs. No focal motor or sensory deficits. LYMPHATICS: No lymphadenopathy of the neck, axillae or groin. SKIN: No ulcer, rash or bleeding. LABS: Labs are glucose 213, sodium 136 and WBC 13.3. ASSESSMENT: 1. Acute pyelonephritis with severe abdominal pain with back pain with possible early sepsis. 2. Possible nephrolithiasis. 3. Increased ALT. 4. Diabetes type 2 uncontrolled. 5. Hyponatremia. 6. Hypertension. 7. Degenerative joint disease. 8. Endometriosis. 9. History of cholecystectomy. 10.History of anxiety. 11.History of nicotine dependence. 12.Obesity with body mass index of 43.5. RECOMMENDATION AND DISCUSSION: Recommend to continue current medications, continue with monitoring and symptomatic treatment. Otherwise at this time I would recommend continue the antibiotics. Follow the cultures. Closely monitor. Guarded prognosis. Further recommendations to follow. MMODL / IJN: [id number] /
--- NOTE | 2018-05-14 13:21 | PN ---
PROGRESS NOTE PROGRESS NOTE ADDENDUM REVIEW OF SYSTEMS: CARDIOVASCULAR SYSTEM: No angina. RESPIRATORY SYSTEM: As mentioned earlier. GI: As mentioned earlier. : As mentioned earlier. MEDICATIONS: Current medications are reviewed and include: 1. Tylenol 325 q.6 p.r.n. 2. [place] 5 mg q.6 p.r.n. 3. Xanax 0.25 t.i.d. 4. Ziac one p.o. daily. 5. Glucotrol 10 mg b.i.d. 6. Heparin 5000 b.i.d. 7. NovoLog scale. 8. Levemir 20 units daily. 9. Claritin 10 mg daily. 10.Ativan 0.5 mg daily. 11.Glucophage 500 mg at bedtime. 12.Morphine sulfate. 13.Habitrol 14. 14.Zofran. 15.Protonix 40 mg IV daily. 16.Zosyn 3.375 IV q.8. 17.Restoril 15 mg at bedtime p.r.n. MMSOPHIAL / NEEMAN: [id number] /
--- NOTE | 2018-05-14 15:51 | P.GSCN ---
History of Present Illness Consult date: 05/14/18 History of present illness: this 42-year-old female was admitted the hospital for treatment of presumed pyelonephritis. She states about 10 days ago she started developing fever. The fever persisted she had chills and back pain. She went to see her primary doctor who thought she had the flu or upper respiratory infection. She isKa laced on Zithromax. She didn't get better and ended up in the emergency room on Sunday. Beth Montero. She is admitted to the hospital for IV hydration and parenteral antibiotics. Cultures have been obtained. She had a computed tomography scan identifying a 1 mm nonobstructing left renal stone. There is no notable hydronephrosis. The patient urine doesn't look infected. She does have a history of stones. She states that she had a stone basketing 2012 and a spontaneous passage of the stone in 2015 both treated by she has been in the hospital for 36 hours and states that she still has fever and back pain. Review of Systems - Constitutional Reports chronic pain, Reports fever, Reports lethargy - Gastrointestinal Reports as per HPI, Reports abdominal pain - Genitourinary Genitourinary: Reports as per HPI Past Medical History Past Medical History: Diabetes Mellitus, Hypertension, Osteoarthritis (OA) Additional Past Medical History / Comment(s): endimetriosis, kidney stones. restless leg, left temporal lobe abnormality History of Any Multi-Drug Resistant Organisms: ESBL Year Discovered:: 01/26/16-ESBL E.coli MDRO Source:: Urine Past Surgical History: Cholecystectomy Additional Past Surgical History / Comment(s): surgery for endometriosis 1997, kidney stones removed 2012 Past Anesthesia/Blood Transfusion Reactions: No Reported Reaction Additional Past Anesthesia/Blood Transfusion Reaction / Comm: pt declines any blood or blood products. Patient would rather not have any blood products. Past Psychological History: Anxiety Additional Psychological History / Comment(s): She is single and relates that she's never been . She has no children. Works in [employer] home. Tobacco smoker till last week. Denies significant alcohol or recreational drug use. No experience. No international travel. No animal exposures Smoking Status: Current some day smoker Past Alcohol Use History: Occasional Additional Past Alcohol Use History / Comment(s): less than 5 per month Past Drug Use History: None Reported - Past Family History Father Family Medical History: Eye Disorder, Hyperlipidemia Additional Family Medical History / Comment(s): cataracts Mother Additional Family Medical History / Comment(s): of aneurysm of heart 1996 Medications and Allergies Home Medications Medication Instructions Recorded Confirmed Type Bisoprolol-Hctz 5-6.25 mg [Ziac 1 tab PO DAILY 04/15/15 05/12/18 History 5-6.25] LORazepam [Ativan] 0.5 mg PO DAILY PRN 04/15/15 05/12/18 History metFORMIN HCL [Glucophage] 500 mg PO HS 04/15/15 05/12/18 History Azithromycin [Zithromax Z-pack] See Taper PO DIRECTED 05/12/18 05/12/18 History Loratadine [Claritin] 10 mg PO DAILY 05/12/18 05/12/18 History Ondansetron [Zofran ODT] 4 mg PO BID PRN 05/12/18 05/12/18 History glipiZIDE [Glucotrol] 10 mg PO AC-BID 05/12/18 05/12/18 History Allergies Allergy/AdvReac Type Severity Reaction Status Date / Time cat dander Allergy Dyspnea Verified 05/12/18 18:33 dog dander Allergy Dyspnea Verified 05/12/18 18:33 Surgical - Exam Vital Signs Temp Pulse Resp BP Pulse Ox 100.8 F H 114 H 18 169/89 94 L 05/12/18 17:58 05/12/18 17:58 05/12/18 17:58 05/12/18 17:58 05/12/18 17:58 - General well developed, obese - Eyes PERRL - ENT no hearing loss - Neck trachea midline - Respiratory normal expansion, normal respiratory effort - Cardiovascular Rhythm: regular - Abdomen Abdomen: soft, non tender - Integumentary no rash, no growths - Neurologic normal coordination, normal sensation - Musculoskeletal normal posture - Psychiatric oriented to time, oriented to person, oriented to place, memory intact Results - Labs 05/14/18 06:22 05/14/18 06:22 Abnormal Lab Results - Last 24 Hours (Table) 05/13/18 05/13/18 05/14/18 Range/Units 16:44 20:43 06:22 WBC 13.3 H (3.8-10.6) k/uL Neutrophils # (Manual) 9.40 H (1.3-7.7) k/uL Monocytes # (Manual) 1.86 H (0-1.0) k/uL Metamyelocytes # (Man) 0.13 H (0) k/uL Myelocytes # (Manual) 0.13 H (0) k/uL Sodium (137-145) mmol/L Carbon Dioxide (22-30) mmol/L Glucose (74-99) mg/dL POC Glucose (mg/dL) 260 H 257 H (75-99) mg/dL 05/14/18 05/14/18 05/14/18 Range/Units 06:22 06:52 11:56 WBC (3.8-10.6) k/uL Neutrophils # (Manual) (1.3-7.7) k/uL Monocytes # (Manual) (0-1.0) k/uL Metamyelocytes # (Man) (0) k/uL Myelocytes # (Manual) (0) k/uL Sodium 136 L (137-145) mmol/L Carbon Dioxide 18 L (22-30) mmol/L Glucose 213 H (74-99) mg/dL POC Glucose (mg/dL) 223 H 196 H (75-99) mg/dL Microbiology - Last 24 Hours (Table) 05/13/18 11:07 Blood Culture - Preliminary Blood No Growth after 24 hours 05/13/18 00:08 Urine Culture - Final Urine,Clean Catch 05/12/18 18:24 Urine Culture - Preliminary Urine,Voided Gram Neg Bacilli Diabetes panel 05/14/18 Range/Units 06:22 Sodium 136 L (137-145) mmol/L Potassium 4.0 (3.5-5.1) mmol/L Chloride 106 (98-107) mmol/L Carbon Dioxide 18 L (22-30) mmol/L BUN 17 (7-17) mg/dL Creatinine 0.87 (0.52-1.04) mg/dL Glucose 213 H (74-99) mg/dL Calcium 9.6 (8.4-10.2) mg/dL Calcium panel 05/14/18 Range/Units 06:22 Calcium 9.6 (8.4-10.2) mg/dL Pituitary panel 05/14/18 Range/Units 06:22 Sodium 136 L (137-145) mmol/L Potassium 4.0 (3.5-5.1) mmol/L Chloride 106 (98-107) mmol/L Carbon Dioxide 18 L (22-30) mmol/L BUN 17 (7-17) mg/dL Creatinine 0.87 (0.52-1.04) mg/dL Glucose 213 H (74-99) mg/dL Calcium 9.6 (8.4-10.2) mg/dL Adrenal panel 05/14/18 Range/Units 06:22 Sodium 136 L (137-145) mmol/L Potassium 4.0 (3.5-5.1) mmol/L Chloride 106 (98-107) mmol/L Carbon Dioxide 18 L (22-30) mmol/L BUN 17 (7-17) mg/dL Creatinine 0.87 (0.52-1.04) mg/dL Glucose 213 H (74-99) mg/dL Calcium 9.6 (8.4-10.2) mg/dL - Imaging CT scan - abdomen: report reviewed, image reviewed CT scan - pelvis: report reviewed, image reviewed Assessment and Plan Assessment: impression: Probable pyelonephritis right. History of kidney stone with tiny coincidentally identified left renal stone. Recommendations: The patient is on IV antibiotics. Infectious disease, Dr. Vences has been consulted. Nothing urologic needs to be done.
[2018-05-14 16:48] LABS: Glucose,Whole Blood 209 mg/dL (75-99)
[2018-05-14] MEDS: metFORMIN 500 MG TAB PO SCH (20:34)
[2018-05-14] MEDS: DOCUSATE 100 MG CAP PO SCH (20:34)
[2018-05-14] MEDS: KETOROLAC 30 MG/ML 1 ML VIAL IVP SCH (20:34)
[2018-05-14 21:04] LABS: Glucose,Whole Blood 158 mg/dL (75-99)
--- NOTE | 2018-05-14 22:33 | P.PN ---
Subjective Progress Note Date: 05/14/18 42-year-old female who has a known history of diabetes and obesity follows in the outpatient clinic with her primary physician. She relates that she's not been feeling well for quite some time and has been trying to determine if her blood sugars have been part of the problem. She has been on metformin therapy which she relates does not make her feel well and has not been giving her good control of her blood sugars. She now presents to Hospital complaining of significant bilateral flank pain associate with fevers and chills as well as nausea and emesis, patient also was having dysuria. Endocrine the patient is feeling quite poorly still. This is the worst that she has felt in many years. She has markedly elevated blood sugar greater than 500 admission associated with dehydration and a urinary infection and flank pain. Appetite is poor but improving since she has had significant hydration and improvement of her blood sugar. She is very anxious about will occur when she goes to home. She relates that she lives in a family home and cares for her father although he has not an invalid. She does work for an [employer] as well as a local [employer]. Still feels poorly today 05/14/2018, with flank pain and does note to improving fevers. Objective - Vital Signs Vital signs: Vital Signs Temp 98.4 F 05/14/18 15:52 Pulse 76 05/14/18 15:52 Resp 16 05/14/18 15:52 BP 136/86 05/14/18 15:52 Pulse Ox 95 05/14/18 15:52 Intake & Output 05/14/18 05/14/18 05/15/18 06:59 18:59 06:59 Intake Total 238 Balance 238 Weight 126.099 kg Intake: Oral 238 Other: Voiding Method Toilet # Voids 2 2 - Exam 42-year-old female who suffers from significant obesity and still feels very poorly. HEENT: Anicteric conjunctiva are pink and moist nasal mucosa grossly intact without significant lesions, there is no thrush. There are no significant oral lesions Neck: The neck is supple without significant lymphadenopathy or thyromegaly. Lungs: Good bilateral air entry without significant crackles or wheezing. There is no significant bronchial sounds. There is no egophony or dullness. Heart: Regular rate and rhythm with an audible S1-S2, no S3 no S4. There is no significant murmur click or rub, PMI was nondisplaced. Abdomen: Obese, Positive bowel sounds soft and nontender without palpable masses or organomegaly. There was no guarding or rebound. Extremities: The upper extremities have excellent pulses they are symmetric, no significant petechiae or telangiectasia. No splinter hemorrhages were noted. Lower extremities have trace bilateral pedal edema without significant open ulcerations at this time Neuro: Awake alert oriented to person place and time. There are no acute new gross focal sensory motor deficits. - Labs CBC & Chem 7: 05/14/18 06:22 05/14/18 06:22 Labs: Abnormal Lab Results - Last 24 Hours (Table) 05/14/18 05/14/18 05/14/18 Range/Units 06:22 06:22 06:52 WBC 13.3 H (3.8-10.6) k/uL Neutrophils # (Manual) 9.40 H (1.3-7.7) k/uL Monocytes # (Manual) 1.86 H (0-1.0) k/uL Metamyelocytes # (Man) 0.13 H (0) k/uL Myelocytes # (Manual) 0.13 H (0) k/uL Sodium 136 L (137-145) mmol/L Carbon Dioxide 18 L (22-30) mmol/L Glucose 213 H (74-99) mg/dL POC Glucose (mg/dL) 223 H (75-99) mg/dL 05/14/18 05/14/18 05/14/18 Range/Units 11:56 16:44 20:54 WBC (3.8-10.6) k/uL Neutrophils # (Manual) (1.3-7.7) k/uL Monocytes # (Manual) (0-1.0) k/uL Metamyelocytes # (Man) (0) k/uL Myelocytes # (Manual) (0) k/uL Sodium (137-145) mmol/L Carbon Dioxide (22-30) mmol/L Glucose (74-99) mg/dL POC Glucose (mg/dL) 196 H 209 H 158 H (75-99) mg/dL Microbiology - Last 24 Hours (Table) 05/12/18 18:24 Urine Culture - Final Urine,Voided Escherichia coli 05/13/18 11:07 Blood Culture - Preliminary Blood No Growth after 24 hours 05/13/18 00:08 Urine Culture - Final Urine,Clean Catch Laboratory Results WBC 13.3 k/uL (3.8-10.6) H 05/14/18 06:22 RBC 4.08 m/uL (3.80-5.40) 05/14/18 06:22 Hgb 12.1 gm/dL (11.4-16.0) 05/14/18 06:22 Hct 37.1 % (34.0-46.0) 05/14/18 06:22 MCV 90.9 fL (80.0-100.0) 05/14/18 06:22 MCH 29.6 pg (25.0-35.0) 05/14/18 06:22 MCHC 32.5 g/dL (31.0-37.0) 05/14/18 06:22 RDW 14.2 % (11.5-15.5) 05/14/18 06:22 Plt Count 302 k/uL (150-450) 05/14/18 06:22 Neutrophils % (Manual) 70 % 05/14/18 06:22 Band Neutrophils % 1 % 05/14/18 06:22 Lymphocytes % (Manual) 11 % 05/14/18 06:22 Monocytes % (Manual) 14 % 05/14/18 06:22 Eosinophils % (Manual) 2 % 05/14/18 06:22 Metamyelocytes % 1 % 05/14/18 06:22 Myelocytes % 1 % 05/14/18 06:22 Neutrophils # (Manual) 9.40 k/uL (1.3-7.7) H 05/14/18 06:22 Lymphocytes # (Manual) 1.46 k/uL (1.0-4.8) 05/14/18 06:22 Monocytes # (Manual) 1.86 k/uL (0-1.0) H 05/14/18 06:22 Eosinophils # (Manual) 0.27 k/uL (0-0.7) 05/14/18 06:22 Metamyelocytes # (Man) 0.13 k/uL (0) H 05/14/18 06:22 Myelocytes # (Manual) 0.13 k/uL (0) H 05/14/18 06:22 Nucleated RBCs 0 /100 WBC (0-0) 05/14/18 06:22 Manual Slide Review Performed 05/14/18 06:22 Toxic Granulation Present 05/14/18 06:22 RBC Morphology Normal 05/14/18 06:22 PT 9.5 sec (9.0-12.0) 05/12/18 18:24 INR 1.0 (<1.2) 05/12/18 18:24 APTT 21.8 sec (22.0-30.0) L 05/12/18 18:24 Sodium 136 mmol/L (137-145) L 05/14/18 06:22 Potassium 4.0 mmol/L (3.5-5.1) 05/14/18 06:22 Chloride 106 mmol/L (98-107) 05/14/18 06:22 Carbon Dioxide 18 mmol/L (22-30) L 05/14/18 06:22 Anion Gap 12 mmol/L 05/14/18 06:22 BUN 17 mg/dL (7-17) 05/14/18 06:22 Creatinine 0.87 mg/dL (0.52-1.04) 05/14/18 06:22 Est GFR (CKD-EPI)AfAm >90 (>60 ml/min/1.73 sqM) 05/14/18 06:22 Est GFR (CKD-EPI)NonAf 82 (>60 ml/min/1.73 sqM) 05/14/18 06:22 Glucose 213 mg/dL (74-99) H 05/14/18 06:22 POC Glucose (mg/dL) 158 mg/dL (75-99) H 05/14/18 20:54 POC Glu Visitor Services Technician ID Emmanuelle Jernigan 05/14/18 20:[address] Glu mg/dL 349 05/12/18 18:24 Hemoglobin A1c 13.8 % (4.0-6.0) H 05/12/18 18:24 Plasma Lactic Acid Robbin 1.9 mmol/L (0.7-2.0) 05/12/18 18:24 Calcium 9.6 mg/dL (8.4-10.2) 05/14/18 06:22 Phosphorus 2.1 mg/dL (2.5-4.5) L 05/12/18 18:24 Magnesium 2.2 mg/dL (1.6-2.3) 05/12/18 18:24 Total Bilirubin 1.2 mg/dL (0.2-1.3) 05/12/18 18:24 AST 35 U/L (14-36) 05/12/18 18:24 ALT 56 U/L (9-52) H 05/12/18 18:24 Alkaline Phosphatase 220 U/L (38-126) H 05/12/18 18:24 Total Protein 5.6 g/dL (6.3-8.2) L 05/12/18 18:24 Albumin 3.1 g/dL (3.5-5.0) L 05/12/18 18:24 HCG, Qual Not Detected 05/12/18 18:24 Urine Color Light Yellow 05/12/18 18:24 Urine Appearance Cloudy (Clear) H 05/12/18 18:24 Urine pH 6.0 (5.0-8.0) 05/12/18 18:24 Ur Specific [place] 1.012 (1.001-1.035) 05/12/18 18:24 Urine Protein Trace (Negative) H 05/12/18 18:24 Urine Glucose (UA) 4+ (Negative) H 05/12/18 18:24 Urine Ketones Negative (Negative) 05/12/18 18:24 Urine Blood Large (Negative) H 05/12/18 18:24 Urine Nitrite Negative (Negative) 05/12/18 18:24 Urine Bilirubin Negative (Negative) 05/12/18 18:24 Urine Urobilinogen <2.0 mg/dL (<2.0) 05/12/18 18:24 Ur Leukocyte Esterase Large (Negative) H 05/12/18 18:24 Urine RBC 18 /hpf (0-5) H 05/12/18 18:24 Urine WBC 84 /hpf (0-5) H 05/12/18 18:24 Urine WBC Clumps Many /hpf (None) H 05/12/18 18:24 Ur Squamous Epith Cells 3 /hpf (0-4) 05/12/18 18:24 Urine Bacteria Moderate /hpf (None) H 05/12/18 18:24 Urine Mucus Rare /hpf (None) H 18 18:24 Microbiology 05/12/18 18:24 Urine,Voided Urine Culture - Final Escherichia coli 05/13/18 11:07 Blood Blood Culture - Preliminary No Growth after 24 hours 05/13/18 00:08 Urine,Clean Catch Urine Culture - Final Assessment and Plan (1) Acute pyelonephritis Narrative/Plan: 42-year-old female who has a long-standing history of obesity and poorly controlled diabetes mellitus type 2 presents to hospital with evidence of significant sepsis from the urinary tract infection and what appears to be polynephritis. The patient started to feel somewhat better since she has been brought to the hospital and receiving hydration, glucose control and antibiotic therapy. At this time gram-negative bacilli have been found in the urine culture and blood cultures are pending at this time. Receiving intravenous antibiotic therapy with Zosyn at this time given the prior urine culture given the evidence of prior cultures that show evidence of resistance to quinolones, sulfa as well as Rocephin. We'll monitor the patient and her response to therapy, may require outpatient intravenous antibiotic therapy if there are no oral options for her infection. She understands the importance of glucose control. However she apparently did not do well with the dietitian today, relating that she will not be told what to do her scolded because of her dietary choices by anybody. She 43-year-old woman and doesn't have to listen to anybody. The patient is counseled that it would be very worthwhile to at least try to have an open mind to the diabetes team to improve her glucose control and overall health. With hydration the patient's current hyperglycemia is improving, she is not having evidence of significant acute renal failure but hemoglobin A1c is at 13.8. Imaging did not reveal obstruction, urology was consulted and were not able to add given no surgical process. Renal function is adequate. Fever is improving and is able to eat today. due to the amount of pain addition of Toradol to improve her discomforts. We will await the final culture results to be able to determine best possible antibiotic add to discharge. Current Visit: Yes Status: Acute Code(s): N10 - ACUTE PYELONEPHRITIS SNOMED Code(s): 74134191 (2) Gram-negative infection Current Visit: Yes Status: Acute Code(s): A49.9 - BACTERIAL INFECTION, UNSPECIFIED SNOMED Code(s): 244431220 (3) Uncontrolled type 2 diabetes mellitus Current Visit: Yes Status: Acute Code(s): E11.65 - TYPE 2 DIABETES MELLITUS WITH HYPERGLYCEMIA SNOMED Code(s): 62908439 (4) Obesity Current Visit: Yes Status: Acute Code(s): E66.9 - OBESITY, UNSPECIFIED SNOMED Code(s): 210269624
--- NOTE | 2018-05-14 22:36 | PN ---
PROGRESS NOTE Patient is seen for follow up for nephrolithiasis and acute kidney injury. Currently, patient is maintained on IV fluids. She has been still having low-grade fevers and is being followed by ID. Overall, patient states she feels about the same as yesterday. She still has. She continues to have flank pain. PHYSICAL EXAMINATION: This morning blood pressure was 133/89, heart rate 94 per minute, temperature was 100.1. Examination of the heart S1, S2. Examination of the lungs decreased breath sounds at bases. Abdomen is soft, nontender. There is bilateral flank tenderness noted. Examination of lower extremities shows no evidence of edema. LAB: Show sodium 136, potassium 4.0, BUN 17, serum creatinine 0.87, hemoglobin 12.1 g/dL. ASSESSMENT: 1. Acute kidney injury, prerenal, currently improved with IV hydration. 2. Nephrolithiasis with nonobstructive 1 mm stone on the left side. We will proceed with Urology consult as patient continues to have pain. 3. A urinary tract infection. Urine culture is growing Gram-negative bacilli. 4. Hypertension. Blood pressure is currently controlled. PLAN: Proceed with Urology consult. Will add Colace for constipation and continue with IV fluids. MMODL / IJN: [id number] /
[2018-05-15] MEDS: KETOROLAC 30 MG/ML 1 ML VIAL IVP SCH ×3 (01:55→12:49)
[2018-05-15] MEDS: PIPERACILLIN-TAZOBACTAM 3.375 GM in DEXTROSE/WATER 1 50ML.BAG IVPB SCH (03:58)
[2018-05-15] MEDS: MORPHINE SULFATE 4 MG/ML SYRINGE IVP PRN ×2 (04:01→09:29)
[2018-05-15] MEDS: SODIUM CHLORIDE 0.9% 1,000 ML IV SCH ×2 (04:03→09:26)
[2018-05-15 06:59] LABS: Basophils # (A) 0.1 k/uL (0-0.2); Basophils % (A) 1 %; Eosinophils # (A) 0.2 k/uL (0-0.7); Eosinophils % (A) 2 %; HCT 35.5 % (34.0-46.0); HGB 11.3 gm/dL (11.4-16.0); Lymphocytes # (A) 1.5 k/uL (1.0-4.8); Lymphocytes % (A) 14 %; MCHC 31.7 g/dL (31.0-37.0); MCV 91.6 fL (80.0-100.0); Mean Platelet Volume 7.6; Monocytes # (A) 0.7 k/uL (0-1.0); Monocytes % (A) 6 %; Neutrophils # (A) 7.8 k/uL (1.3-7.7); Neutrophils % (A) 74 %; Platelet Count 336 k/uL (150-450); RBC 3.88 m/uL (3.80-5.40); RDW 14.2 % (11.5-15.5); WBC 10.6 k/uL (3.8-10.6)
[2018-05-15 07:05] LABS: Glucose,Whole Blood 128 mg/dL (75-99)
[2018-05-15] MEDS: INSULIN ASPART 100 UNIT/ML 1 ML 10 ML VIAL SQ SCH ×2 (07:05→12:49)
[2018-05-15] MEDS: glipiZIDE 10 MG TAB PO SCH (07:11)
[2018-05-15 07:18] LABS: Anion Gap 11 mmol/L; Blood Urea Nitrogen 18 mg/dL (7-17); Calcium 9.3 mg/dL (8.4-10.2); Carbon Dioxide 20 mmol/L (22-30); Chloride 107 mmol/L (98-107); Glucose 131 mg/dL (74-99); Potassium 3.6 mmol/L (3.5-5.1); Sodium 138 mmol/L (137-145)
[2018-05-15] MEDS: NICOTINE 14MG/24HR PATCH TRANSDERM SCH ×2 (07:45→09:28)
[2018-05-15 08:55] VITALS: RESP 20
[2018-05-15] MEDS ORDERED: ALPRAZolam 0.25 MG TAB PO PRN (09:18)
[2018-05-15] MEDS ORDERED: LORazepam 1 MG TAB PO PRN (09:20)
[2018-05-15] MEDS: INSULIN DETEMIR 100 UNIT/ML 10 ML VIAL SQ SCH (09:27)
[2018-05-15] MEDS: HEPARIN SODIUM,PORCINE 5,000 UNIT/ML 1 ML VIAL SQ SCH (09:28)
[2018-05-15] MEDS: PANTOPRAZOLE 40 MG/10 ML VIAL IVP SCH (09:28)
[2018-05-15] MEDS: BISOPROLOL-HCTZ 5-6.25 MG 1 EACH TAB PO SCH (09:28)
[2018-05-15] MEDS: LORATADINE 10 MG TAB PO SCH (09:28)
[2018-05-15] MEDS: DOCUSATE 100 MG CAP PO SCH (09:29)
[2018-05-15] MEDS ORDERED: cefTRIAXone IN SWFI 1,000 MG/10 ML SYRINGE IVP SCH (10:15)
[2018-05-15 12:01] LABS: Glucose,Whole Blood 192 mg/dL (75-99)
[2018-05-15 13:33] VITALS: BP 139/89; PULSE 58; TEMP 97.8
[2018-05-15] MEDS: HYDROcodone/APAP 5-325MG 1 EACH TAB PO PRN (13:55)
--- NOTE | 2018-05-16 07:29 | DS ---
DISCHARGE SUMMARY DATE OF SERVICE: 05/15/2018. FINAL DIAGNOSES: 1. Acute pyelonephritis, severe abdominal pain with back pain, possible early sepsis with E coli. 2. Possible nephrolithiasis. 3. Increased ALT. 4. Diabetes, uncontrolled. 5. Hyponatremia. 6. Hypertension. 7. Degenerative joint disease. 9. History of cholecystectomy. 10.History of anxiety. 11.History of nicotine dependence. 12.Obesity with body mass index of 43.5. DISCHARGE DISPOSITION: The patient will be discharged in stable condition with guarded prognosis. Total time taken 35 minutes. HISTORY OF PRESENT ILLNESS: This 42-year-old woman with a past medical history of multiple medical problems was admitted with acute pyelonephritis. The patient is complaining of back pain also. Treated symptomatically. Seen by multiple consultants including Infectious Disease and Urology. E coli grown from the culture. Patient improved significantly. On exam, vital signs are stable. CARDIOVASCULAR: S1, S2 ABDOMEN: Soft. NERVOUS SYSTEM: No focal deficits. DISCHARGE ADVICE: 1. Diet is cardiac. 2. Activity limited until followup. 3. Follow up with Dr. Zavala in 2-3 days. 4. Follow with Dr. Pang and Dr. Alfred as advised. MEDICATIONS: 1. Ziac 1 tablet p.o. daily. 2. Glucotrol 10 mg a.c. b.i.d. 3. Claritin 10 mg daily. 4. Ativan 0.5 mg daily. 5. Glucophage 500 mg q.h.s. 6. Zofran 4 mg b.i.d. p.r.n. 7. Tylenol p.r.n. 8. Cipro 500 mg p.o. b.i.d. for 2 weeks. 9. Colace 100 mg p.o. b.i.d. 10.Levemir 20 units subcu daily. 11.Habitrol 14 daily. 12.Protonix 40 mg p.o. daily. Once again, the patient will be discharged in stable condition with guarded prognosis. MMODL / IJN: [id number] / MTDD
== END 2018-05-15 15:54 | disposition home or self-care (01) | DRG 872 ==
LOC: EC 17:48 → 3SUR 20:35 → 6PED 05-14 08:42
PROVIDERS: ADMIT Hospitalist; ATTEND Hospitalist
DX: A41.51 Sepsis due to Escherichia coli [E. coli] (principal); N10 Acute pyelonephritis; E87.1 Hypo-osmolality and hyponatremia; N17.9 Acute kidney failure, unspecified; Z68.41 Body mass index [BMI] 40.0-44.9, adult; E11.65 Type 2 diabetes mellitus with hyperglycemia; E66.9 Obesity, unspecified; E78.00 Pure hypercholesterolemia, unspecified; E86.0 Dehydration; F17.200 Nicotine dependence, unspecified, uncomplicated; G25.81 Restless legs syndrome; I10 Essential (primary) hypertension; M19.90 Unspecified osteoarthritis, unspecified site; N20.0 Calculus of kidney; N28.89 Other specified disorders of kidney and ureter; F41.9 Anxiety disorder, unspecified; R59.0 Localized enlarged lymph nodes; Z79.899 Other long term (current) drug therapy; Z79.84 Long term (current) use of oral hypoglycemic drugs; Z91.09 Other allergy status, other than to drugs and biological substances; Z90.49 Acquired absence of other specified parts of digestive tract; Z87.442 Personal history of urinary calculi; Z87.440 Personal history of urinary (tract) infections
CPT/HCPCS: 36415; 71046; 74176; 76770; 80048; 80053; 81001; 83036; 83605; 83735; 84100; 84703; 85025; 85610; 85730; 87040; 87077; 87086; 87186; 93005; 96361; 96374; 96375; 99285

== ENCOUNTER → 2018-05-17 | Outpatient (CLI) | payer OTHER ==
[2018-05-17 13:56] LABS: Basophils # (A) 0.1 k/uL (0-0.2); Basophils % (A) 1 %; Eosinophils # (A) 0.2 k/uL (0-0.7); Eosinophils % (A) 1 %; HCT 36.8 % (34.0-46.0); HGB 11.3 gm/dL (11.4-16.0); Hypochromasia Slight; Lymphocytes # (A) 1.7 k/uL (1.0-4.8); Lymphocytes % (A) 14 %; MCH 28.9 pg (25.0-35.0); MCHC 30.9 g/dL (31.0-37.0); MCV 93.5 fL (80.0-100.0); Mean Platelet Volume 7.6; Monocytes # (A) 0.7 k/uL (0-1.0); Monocytes % (A) 6 %; Neutrophils # (A) 9.3 k/uL (1.3-7.7); Neutrophils % (A) 76 %; Platelet Count 582 k/uL (150-450); RBC 3.93 m/uL (3.80-5.40); RDW 14.5 % (11.5-15.5); WBC 12.2 k/uL (3.8-10.6)
[2018-05-17 14:25] LABS: Anion Gap 10 mmol/L; Blood Urea Nitrogen 10 mg/dL (7-17); Calcium 9.9 mg/dL (8.4-10.2); Carbon Dioxide 26 mmol/L (22-30); Chloride 104 mmol/L (98-107); Glucose 193 mg/dL (74-99); Potassium 4.9 mmol/L (3.5-5.1); Sodium 140 mmol/L (137-145)
== END | disposition home or self-care (01) ==
LOC: LABWHC1 13:04
PROVIDERS: ATTEND Nurse Practitioner
DX: E11.9 Type 2 diabetes mellitus without complications (principal); N12 Tubulo-interstitial nephritis, not specified as acute or chronic
CPT/HCPCS: 36415; 80048; 85025

== ENCOUNTER 2019-01-29 00:19 | Emergency (ER) | payer OTHER ==
[2019-01-29 00:42] VITALS: RESP 18
[2019-01-29] MEDS ORDERED: AZITHROMYCIN 500 MG TAB PO STA (00:50)
[2019-01-29] MEDS ORDERED: guaiFENesin-DM 600/30MG 1 EACH TAB.ER.12H PO STA (00:50)
[2019-01-29] MEDS ORDERED: ACET/COD 300 MG/30 MG STARTER PACK 6 TAB BTL PO STA (00:51)
--- NOTE | 2019-01-29 00:53 | ED ---
ENT HPI - General Chief complaint: ENT Stated complaint: Ear/ Jaw Pain Time Seen by Provider: 01/29/19 00:45 Source: patient Mode of arrival: ambulatory Limitations: no limitations - History of Present Illness Initial comments: 43-year-old female patient presents to the emergency department today for evaluation of right ear pain, nasal congestion and sore throat. Patient states that symptoms have been present for the last week intermittently but worsened tonight. Patient states she is unable to sleep due to the pain. Patient denies any fevers or chills with this. Patient states that she did attempt to take Motrin but it doesn't seem to be helping her symptoms. Patient denies history of ear infection but states she does have history of diabetes. Denies any difficulty with hearing. Denies any broken or loose teeth. Denies any cavities. Patient denies any recent rash, shortness breath, chest pain, abdominal pain, nausea, vomiting, diarrhea, constipation, back pain, numbness, tingling, dizziness, weakness, hematuria, dysuria, urinary urgency, urinary frequency, headache, visual changes, or any other complaints. - Related Data Home Medications Medication Instructions Recorded Confirmed Bisoprolol-Hctz 5-6.25 mg [Ziac 1 tab PO DAILY 04/15/15 05/12/18 5-6.25 MG] LORazepam [Ativan] 0.5 mg PO DAILY PRN 04/15/15 05/12/18 metFORMIN HCL [Glucophage] 500 mg PO HS 04/15/15 05/12/18 Loratadine [Claritin] 10 mg PO DAILY 05/12/18 05/12/18 Ondansetron [Zofran ODT] 4 mg PO BID PRN 05/12/18 05/12/18 glipiZIDE [Glucotrol] 10 mg PO AC-BID 05/12/18 05/12/18 Previous Rx's Medication Instructions Recorded Acetaminophen Tab [Tylenol] 325 mg PO Q6HR PRN tab 05/15/18 Ciprofloxacin HCl [Cipro] 500 mg PO Q12HR #28 tablet 05/15/18 Docusate [Colace] 100 mg PO BID #0 cap 05/15/18 Insulin Detemir (Levemir) [Levemir] 20 unit SQ DAILY #1 syr 05/15/18 Nicotine 14Mg/24Hr Patch [Habitrol] 1 patch TRANSDERM DAILY #30 patch 05/15/18 Pantoprazole Sodium [Protonix] 40 mg PO DAILY #30 tablet. 05/15/18 Azithromycin [Zithromax Z-pack] 0 mg PO DIRECTED #6 tab 01/29/19 guaiFENesin-DM 600/30MG [Mucinex 1 each PO Q12HR #10 tab.er.12h 01/29/19 Dm] Allergies Allergy/AdvReac Type Severity Reaction Status Date / Time cat dander Allergy Dyspnea Verified 05/12/18 18:33 dog dander Allergy Dyspnea Verified 05/12/18 18:33 Review of Systems ROS Statement: Those systems with pertinent positive or pertinent negative responses have been documented in the HPI. ROS Other: All systems not noted in ROS Statement are negative. Past Medical History Past Medical History: Hypertension Additional Past Medical History / Comment(s): endimetriosis, kidney stones. restless leg, left temporal lobe abnormality History of Any Multi-Drug Resistant Organisms: ESBL Date of last positivie culture/infection: 01/26/16-ESBL E.coli MDRO Source:: Urine Past Surgical History: Cholecystectomy Additional Past Surgical History / Comment(s): surgery for endometriosis 1997, kidney stones removed 2012 Past Anesthesia/Blood Transfusion Reactions: No Reported Reaction Additional Past Anesthesia/Blood Transfusion Reaction / Comment(s): pt declines any blood or blood products. Patient would rather not have any blood products. Past Psychological History: Anxiety Smoking Status: Current some day smoker Past Alcohol Use History: Occasional Past Drug Use History: None Reported - Past Family History Father Family Medical History: Hyperlipidemia Additional Family Medical History / Comment(s): cataracts Mother Additional Family Medical History / Comment(s): aneurism of heart General Exam Limitations: no limitations General appearance: alert, in no apparent distress, other (Physical well- developed, well-nourished adult female patient in no acute distress. Vital signs upon presentation are temperature 97.9F, pulse 79, respirations 18, blood pressure 188/94, pulse ox 98% on room air.) Eye exam: Present: normal appearance, PERRL, EOMI. Absent: scleral icterus, conjunctival injection, periorbital swelling ENT exam: Present: normal exam, mucous membranes moist, other (No mastoid tenderness). Absent: normal oropharynx (Pharyngeal erythema), TM's normal bilaterally (Right tympanic membrane is bulging, erythematous.) Respiratory exam: Present: normal lung sounds bilaterally. Absent: respiratory distress, wheezes, rales, rhonchi, stridor Cardiovascular Exam: Present: regular rate, normal rhythm, normal heart sounds. Absent: systolic murmur, diastolic murmur, rubs, gallop, clicks GI/Abdominal exam: Present: soft, normal bowel sounds. Absent: distended, tenderness, guarding, rebound, rigid Neurological exam: Present: alert, oriented X3, CN II-XII intact Psychiatric exam: Present: normal affect, normal mood Skin exam: Present: warm, dry, intact, normal color. Absent: rash Course Vital Signs 01/29/19 01/29/19 00:38 01:21 Temperature 97.9 F 98.7 F Pulse Rate 79 71 Respiratory 18 18 Rate Blood Pressure 188/94 137/87 O2 Sat by Pulse 98 99 Oximetry Medical Decision Making - Medical Decision Making 43-year-old female patient presents to the emergency department today for evaluation of right ear pain, postnasal drip, and sore throat. Physical examination does reveal a bulging, erythematous right tympanic membrane. Patient symptoms are consistent with otitis media. She has no mastoid tenderness. No dizziness. She will be started on a azithromycin given a starter pack with Tylenol with Codeine and also given Mucinex DM for decongestant effects. She is instructed to follow-up with her primary care phys ician for recheck in 1-2 days. Return parameters were discussed in detail. She verbalizes understanding and agrees with this plan. Disposition Clinical Impression: Right otitis media Disposition: HOME SELF-CARE Condition: Good Instructions (If sedation given, give patient instructions): Ear Infection (ED) Additional Instructions: Take medications as directed. Complete antibiotic prescription in full. Follow-up with your primary care physician for recheck in 1-2 days. Return to the emergency department immediately for any new, worsening, or concerning symptoms Prescriptions: guaiFENesin-DM 600/30MG [Mucinex Dm] 1 each PO Q12HR #10 tab.er.12h Azithromycin [Zithromax Z-pack] 0 mg PO DIRECTED #6 tab Is patient prescribed a controlled substance at d/c from ED?: No Referrals: Ruth Zavala MD [Primary Care Provider] - 1-2 days Time of Disposition: 00:53
[2019-01-29 01:22] VITALS: BP 137/87; PULSE 71; TEMP 98.7
== END 2019-01-29 01:21 | disposition home or self-care (01) ==
LOC: EC 00:19
DX: H66.91 Otitis media, unspecified, right ear (principal); R09.82 Postnasal drip; R09.81 Nasal congestion; J02.9 Acute pharyngitis, unspecified; I10 Essential (primary) hypertension; E11.9 Type 2 diabetes mellitus without complications; F17.200 Nicotine dependence, unspecified, uncomplicated; Z91.048 Other nonmedicinal substance allergy status; Z79.84 Long term (current) use of oral hypoglycemic drugs; Z79.899 Other long term (current) drug therapy
CPT/HCPCS: 99283

== ENCOUNTER 2019-03-03 19:56 | Emergency (ER) | payer OTHER ==
[2019-03-03 20:12] VITALS: BP 190/102; PULSE 85; RESP 20; TEMP 98.5
[2019-03-03] MEDS ORDERED: LIDOCAINE 1% INJ 10MG/ML (20 ML MDV) SQ ONE (21:46)
[2019-03-03] MEDS ORDERED: KETOROLAC 30 MG/ML 1 ML VIAL IM STA (21:46)
--- NOTE | 2019-03-03 22:13 | ED ---
ENT HPI - General Chief complaint: Dental/Oral Stated complaint: Broken Tooth Time Seen by Provider: 03/03/19 20:30 Source: patient Mode of arrival: ambulatory Limitations: no limitations - History of Present Illness Initial comments: Patient is a 43-year-old female presents emergency Department with dental pain. Patient reports today she chipped tooth #10 and has been in severe pain ever since. Patient reports any time she has her mouth open the pain is exacerbated. Patient reports she is unable to the or drink due to the severe pain. Patient denies any nausea, vomiting, fever, headache, lightheadedness, blurry vision. Patient denies taking any medication to alleviate the pain. Patient reports she has a dentist and is scheduled to see him tomorrow. - Related Data Home Medications Medication Instructions Recorded Confirmed Bisoprolol-Hctz 5-6.25 mg [Ziac 1 tab PO DAILY 04/15/15 05/12/18 5-6.25 MG] LORazepam [Ativan] 0.5 mg PO DAILY PRN 04/15/15 05/12/18 metFORMIN HCL [Glucophage] 500 mg PO HS 04/15/15 05/12/18 Loratadine [Claritin] 10 mg PO DAILY 05/12/18 05/12/18 Ondansetron [Zofran ODT] 4 mg PO BID PRN 05/12/18 05/12/18 glipiZIDE [Glucotrol] 10 mg PO AC-BID 05/12/18 05/12/18 Previous Rx's Medication Instructions Recorded Acetaminophen Tab [Tylenol] 325 mg PO Q6HR PRN tab 05/15/18 Ciprofloxacin HCl [Cipro] 500 mg PO Q12HR #28 tablet 05/15/18 Docusate [Colace] 100 mg PO BID #0 cap 05/15/18 Insulin Detemir (Levemir) [Levemir] 20 unit SQ DAILY #1 syr 05/15/18 Nicotine 14Mg/24Hr Patch [Habitrol] 1 patch TRANSDERM DAILY #30 patch 05/15/18 Pantoprazole Sodium [Protonix] 40 mg PO DAILY #30 tablet. 05/15/18 Azithromycin [Zithromax Z-pack] 0 mg PO DIRECTED #6 tab 01/29/19 guaiFENesin-DM 600/30MG [Mucinex 1 each PO Q12HR #10 tab.er.12h 01/29/19 Dm] Acetaminophen-Codeine 300-30mg 1 tab PO Q4H PRN #10 tablet 03/03/19 [Tylenol #3] Allergies Allergy/AdvReac Type Severity Reaction Status Date / Time cat dander Allergy Dyspnea Verified 03/03/19 20:12 dog dander Allergy Dyspnea Verified 03/03/19 20:12 Review of Systems ROS Statement: Those systems with pertinent positive or pertinent negative responses have been documented in the HPI. ROS Other: All systems not noted in ROS Statement are negative. Past Medical History Past Medical History: Hypertension Additional Past Medical History / Comment(s): endimetriosis, kidney stones. restless leg, left temporal lobe abnormality History of Any Multi-Drug Resistant Organisms: ESBL Date of last positivie culture/infection: 01/26/16-ESBL E.coli MDRO Source:: Urine Past Surgical History: Cholecystectomy Additional Past Surgical History / Comment(s): surgery for endometriosis 1997, kidney stones removed 2012 Past Anesthesia/Blood Transfusion Reactions: No Reported Reaction Additional Past Anesthesia/Blood Transfusion Reaction / Comment(s): pt declines any blood or blood products. Patient would rather not have any blood products. Past Psychological History: Anxiety Smoking Status: Current some day smoker Past Alcohol Use History: Occasional Past Drug Use History: None Reported - Past Family History Father Family Medical History: Hyperlipidemia Additional Family Medical History / Comment(s): cataracts Mother Additional Family Medical History / Comment(s): aneurism of heart General Exam Limitations: no limitations General appearance: alert, in no apparent distress Head exam: Present: atraumatic, normocephalic, normal inspection Eye exam: Present: normal appearance, PERRL, EOMI Pupils: Present: normal accommodation ENT exam: Absent: normal oropharynx (Minor tooth fracture on the tip of tooth #10.) Neck exam: Present: normal inspection Respiratory exam: Present: normal lung sounds bilaterally. Absent: wheezes Cardiovascular Exam: Present: regular rate, normal rhythm, normal heart sounds Extremities exam: Present: normal inspection, full ROM Back exam: Present: normal inspection Neurological exam: Present: alert, oriented X3 Psychiatric exam: Present: normal affect, normal mood Skin exam: Present: warm, intact, normal color Course Vital Signs 03/03/19 20:10 Temperature 98.5 F Pulse Rate 85 Respiratory 20 Rate Blood Pressure 190/102 O2 Sat by Pulse 99 Oximetry Medical Decision Making - Medical Decision Making Patient is a 43-year-old female presents emergency Department with toothache. Based on history and physical examination I suggested the patient to visit her dentist as soon as possible. To alleviate the pain I gave her 30 mg Toradol and an and for orbital dental block. Also prescribing Tylenol 3 for pain control until she is able to see a dentist. After the blood patient reports she feels much better and is ready go home. Patient advised to follow-up with primary care. Patient advised to return to emergency department if symptoms worsen. Case discussed with physician. Disposition Clinical Impression: Tooth fracture Disposition: HOME SELF-CARE Condition: Stable Instructions (If sedation given, give patient instructions): Toothache (ED) Additional Instructions: Please follow-up with a dentist. Please return to emergency department if symptoms worsen. Is patient prescribed a controlled substance at d/c from ED?: No If prescribed controlled substance>3 days was MAPS reviewed?: Prescribed <3 Days Referrals: Ruth Zavala MD [Primary Care Provider] - 1-2 days Time of Disposition: 22:03
== END 2019-03-03 22:30 | disposition home or self-care (01) ==
LOC: EC 19:56
DX: S02.5XXA Fracture of tooth (traumatic), initial encounter for closed fracture (principal); I10 Essential (primary) hypertension; F17.200 Nicotine dependence, unspecified, uncomplicated; Z79.84 Long term (current) use of oral hypoglycemic drugs; Z79.899 Other long term (current) drug therapy; Z91.048 Other nonmedicinal substance allergy status
CPT/HCPCS: 99283; 64400; 96372; J2001; J1885

== ENCOUNTER → 2021-12-08 | Outpatient (CLI) | payer OTHER ==
--- NOTE | 2021-12-09 14:30 | MM ---
Reason for exam: screening (asymptomatic). Baseline mammogram. History: Patient is nulliparous. Physical Findings: A clinical breast exam by your physician is recommended on an annual basis and results should be correlated with mammographic findings. MG Screening Mammo w CAD Bilateral CC and MLO view(s) were taken. CV view(s) were taken of the right breast. There are scattered fibroglandular densities. Finding: There is a 4 mm equal density (isodense), oval mass located 8 cm from the nipple in the lower outer quadrant, middle position of the left breast. ASSESSMENT: Incomplete: need additional imaging evaluation, BI-RAD 0 RECOMMENDATION: Ultrasound of the left breast. [facility] will attempt to contact patient to return for ultrasound.
== END | disposition home or self-care (01) ==
LOC: RADMAMWWP 09:38
PROVIDERS: ATTEND Obstetrics & Gynecology
DX: Z12.31 Encounter for screening mammogram for malignant neoplasm of breast (principal)
CPT/HCPCS: 77067

== ENCOUNTER → 2021-12-14 | Outpatient (CLI) | payer OTHER ==
--- NOTE | 2021-12-15 09:56 | USB ---
Reason for exam: additional evaluation requested from abnormal screening. History: Patient is nulliparous. Physical Findings: A clinical breast exam by your physician is recommended on an annual basis and results should be correlated with mammographic findings. US Breast Workup Limited LT Left limited breast ultrasound including focal area of concern, retroareolar and axilla demonstrates a 0.5 x 0.3 x 0.5cm possible cyst with adjacent duct at 4 o'clock. These results were verbally communicated with the patient and result sheet given to the patient on 12/14/21. ASSESSMENT: Probably benign, BI-RAD 3 RECOMMENDATION: Follow-up diagnostic mammogram and ultrasound of the left breast in 6 months.
== END | disposition home or self-care (01) ==
LOC: RADUSWWP 14:59
PROVIDERS: ATTEND Obstetrics & Gynecology
DX: R92.8 Other abnormal and inconclusive findings on diagnostic imaging of breast (principal)

== ENCOUNTER 2022-01-07 14:37 | Emergency (ER) | payer OTHER ==
[2022-01-07 15:00] VITALS: TEMP 98.7
[2022-01-07] MEDS ORDERED: SODIUM CHLORIDE 0.9% 1,000 ML IV STA (15:24)
--- NOTE | 2022-01-07 15:46 | ED ---
General Adult HPI - General Chief complaint: Syncope Stated complaint: Syncope Source: patient Mode of arrival: ambulatory Limitations: no limitations - History of Present Illness Initial comments: Dictation was produced using [email or web address] dictation software. please excuse any gra mmatical, word or spelling errors. Chief Complaint: 46-year-old female presents to the emergency department for syncope. History of Present Illness: Patient's 46-year-old female she has past medical history of hypertension. She presents to the emergency department today for syncopal episode. She has been suffering from gastroenteritis for the last 2-3 days. Today she woke up feeling fine. She was out and about with her best friend. Directed Xunlei when she was checking out patient noticed that the cost was potentially higher than what she expected. She then became li ghtheaded and syncopized. This episode was witnessed by friend. She states that she became pale and her eyes rolled back. She was caught and let down slowly to the floor. Patient did report hitting her knee. Friend reports that there was no postictal state. Patient has any chest pain or shortness of breath. States that her GI symptoms included diarrhea and nausea. The ROS documented in this emergency department record has been reviewed and confirmed by me. Those systems with pertinent positive or negative responses have been documented in the HPI. All other systems are other negative and/or noncontributory. PHYSICAL EXAM: General Impression: Alert and oriented x3, not in acute distress HEENT: Normocephalic atraumatic, extra-ocular movements intact, pupils equal and reactive to light bilaterally, mucous membranes moist. Cardiovascular: Heart regular rate and rhythm Chest: Able to complete full sentences, no retractions, no tachypnea Abdomen: abdomen soft, non-tender, non-distended, no organomegaly Musculoskeletal: Pulses present and equal in all extremities, no peripheral edema Motor: no focal deficits noted Neurological: CN II-XII grossly intact, no focal motor or sensory deficits noted Skin: Intact with no visualized rashes Psych: Normal affect and mood ED course: 46-year-old well-appearing female presents to the emergency department after syncopal episode. Patient has no history of cardiac disease. Vital signs upon arrival are within acceptable limits. Laboratory evaluation obtained. CBC unremarkable. Metabolic panel shows glucose of 382 with sodium 132. 4 panel by PCR is negative. Patient observed in the emergency department for 2 hours and 45 minutes. Clinical presentation consistent with new onset diabetes. Patient likely suffered some mild d ehydration. Patient given IV fluids he is reevaluated after fluids feeling improved. She had no syncopal events while in emergency department. property assessment monitor was reviewed showing no dysrhythmias. Patient notified of results and that she should follow-up with her primary care doctor for outpatient treatment of diabetes. Patient is told that she had diabetes in the past and has tried a variety of diabetic medications. States she did not like them and has been noncompliant. Told to follow-up with a primary care doctor however states that she wants to find a new one. She is given referral to Dr. Castaneda EKG interpretation: Ventricular rate 73, sinus rhythm,. 144, care is 105, QTc 453. No HI prolongation, no QTC prolongation, no ST or T-wave changes noted. Overall, this EKG is unremarkable - Related Data Home Medications Medication Instructions Recorded Confirmed Bisoprolol-Hctz 5-6.25 mg [Ziac 1 tab PO DAILY 04/15/15 05/12/18 5-6.25 MG] LORazepam [Ativan] 0.5 mg PO DAILY PRN 04/15/15 05/12/18 metFORMIN HCL [Glucophage] 500 mg PO HS 04/15/15 05/12/18 Loratadine [Claritin] 10 mg PO DAILY 05/12/18 05/12/18 Ondansetron [Zofran ODT] 4 mg PO BID PRN 05/12/18 05/12/18 glipiZIDE [Glucotrol] 10 mg PO AC-BID 05/12/18 05/12/18 Previous Rx's Medication Instructions Recorded Acetaminophen Tab [Tylenol] 325 mg PO Q6HR PRN tab 05/15/18 Ciprofloxacin HCl [Cipro] 500 mg PO Q12HR #28 tablet 05/15/18 Docusate [Colace] 100 mg PO BID #0 cap 05/15/18 Insulin Detemir (Levemir) [Levemir] 20 unit SQ DAILY #1 syr 05/15/18 Nicotine 14Mg/24Hr Patch [Habitrol] 1 patch TRANSDERM DAILY #30 patch 05/15/18 Pantoprazole Sodium [Protonix] 40 mg PO DAILY #30 tablet. 05/15/18 Azithromycin [Zithromax Z-pack (6 0 mg PO DIRECTED #6 tab 01/29/19 tabs)] guaiFENesin-DM 600/30MG [Mucinex 1 each PO Q12HR #10 tab.er.12h 01/29/19 Dm] Acetaminophen-Codeine 300-30mg 1 tab PO Q4H PRN #10 tablet 03/03/19 [Tylenol #3] Allergies Allergy/AdvReac Type Severity Reaction Status Date / Time cat dander Allergy Dyspnea Verified 01/07/22 15:00 dog dander Allergy Dyspnea Verified 01/07/22 15:00 Review of Systems ROS Statement: Those systems with pertinent positive or pertinent negative responses have been documented in the HPI. ROS Other: All systems not noted in ROS Statement are negative. Past Medical History Past Medical History: Hypertension Additional Past Medical History / Comment(s): endimetriosis, kidney stones. restless leg, left temporal lobe abnormality History of Any Multi-Drug Resistant Organisms: ESBL Date of last positivie culture/infection: 01/26/16-ESBL E.coli MDRO Source:: Urine Past Surgical History: Cholecystectomy Additional Past Surgical History / Comment(s): surgery for endometriosis 1997, kidney stones removed 2012 Past Anesthesia/Blood Transfusion Reactions: No Reported Reaction Additional Past Anesthesia/Blood Transfusion Reaction / Comment(s): pt declines any blood or blood products. Patient would rather not have any blood products. Past Psychological History: Anxiety Smoking Status: Current every day smoker Past Alcohol Use History: Occasional Past Drug Use History: Marijuana - Past Family History Father Family Medical History: Hyperlipidemia Additional Family Medical History / Comment(s): cataracts Mother Additional Family Medical History / Comment(s): aneurism of heart General Exam Limitations: no limitations Course Vital Signs 01/07/22 14:55 Temperature 98.7 F Pulse Rate 72 Respiratory 15 Rate Blood Pressure 150/89 O2 Sat by Pulse 95 Oximetry Medical Decision Making - Lab Data Result diagrams: 01/07/22 16:02 01/07/22 16:02 Lab Results 01/07/22 01/07/22 01/07/22 Range/Units 16:02 16:02 16:02 WBC 7.5 (3.8-10.6) k/uL RBC 5.03 (3.80-5.40) m/uL Hgb 14.9 (11.4-16.0) gm/dL Hct 46.6 H (34.0-46.0) % MCV 92.5 (80.0-100.0) fL MCH 29.6 (25.0-35.0) pg MCHC 32.0 (31.0-37.0) g/dL RDW 12.9 (11.5-15.5) % Plt Count 238 (150-450) k/uL MPV 7.8 Neutrophils % 66 % Lymphocytes % 18 % Monocytes % 8 % Eosinophils % 3 % Basophils % 3 % Neutrophils # 5.0 (1.3-7.7) k/uL Lymphocytes # 1.3 (1.0-4.8) k/uL Monocytes # 0.6 (0-1.0) k/uL Eosinophils # 0.2 (0-0.7) k/uL Basophils # 0.2 (0-0.2) k/uL Sodium 132 L (137-145) mmol/L Potassium 4.4 (3.5-5.1) mmol/L Chloride 102 (98-107) mmol/L Carbon Dioxide 21 L (22-30) mmol/L Anion Gap 9 mmol/L BUN 20 H (7-17) mg/dL Creatinine 1.31 H (0.52-1.04) mg/dL Est GFR (CKD-EPI)AfAm 56 (>60 ml/min/1.73 sqM) Est GFR (CKD-EPI)NonAf 49 (>60 ml/min/1.73 sqM) Glucose 382 H (74-99) mg/dL Calcium 9.0 (8.4-10.2) mg/dL Magnesium 1.8 (1.6-2.3) mg/dL Influenza Type A (PCR) Not Detected (Not Detectd) Influenza Type B (PCR) Not Detected (Not Detectd) RSV (PCR) Not Detected (Not Detectd) SARS-CoV-2 (PCR) Not Detected (Not Detectd) Disposition Clinical Impression: Syncope, Dehydration Disposition: HOME SELF-CARE Condition: Fair Instructions (If sedation given, give patient instructions): Diabetic Hyperglycemia (ED), Gastroenteritis (ED) Is patient prescribed a controlled substance at d/c from ED?: No Referrals: Amy Castaneda MD [STAFF PHYSICIAN] - 1-2 days
[2022-01-07 16:18] LABS: Basophils # (A) 0.2 k/uL (0-0.2); Basophils % (A) 3 %; Eosinophils # (A) 0.2 k/uL (0-0.7); Eosinophils % (A) 3 %; HCT 46.6 % (34.0-46.0); HGB 14.9 gm/dL (11.4-16.0); Lymphocytes # (A) 1.3 k/uL (1.0-4.8); Lymphocytes % (A) 18 %; MCH 29.6 pg (25.0-35.0); MCV 92.5 fL (80.0-100.0); Mean Platelet Volume 7.8; Monocytes # (A) 0.6 k/uL (0-1.0); Monocytes % (A) 8 %; Neutrophils % (A) 66 %; Platelet Count 238 k/uL (150-450); RBC 5.03 m/uL (3.80-5.40); RDW 12.9 % (11.5-15.5); WBC 7.5 k/uL (3.8-10.6)
[2022-01-07 16:29] LABS: Magnesium 1.8 mg/dL (1.6-2.3); Potassium 4.4 mmol/L (3.5-5.1)
[2022-01-07] MEDS ORDERED: DIPHENOX-ATROP STARTER PACK 8 TAB BTL PO STA (17:29)
[2022-01-07] MEDS ORDERED: ONDANSETRON 4 MG ODT STARTER PACK 2 TAB BTL PO STA (17:29)
[2022-01-07 17:57] VITALS: PULSE 86
[2022-01-07 17:58] VITALS: BP 140/89; RESP 18
== END 2022-01-07 18:12 | disposition home or self-care (01) ==
LOC: EC 14:37
DX: E86.0 Dehydration (principal); R55 Syncope and collapse; Z20.822 Contact with and (suspected) exposure to COVID-19; I10 Essential (primary) hypertension; E11.9 Type 2 diabetes mellitus without complications; F41.9 Anxiety disorder, unspecified; F17.200 Nicotine dependence, unspecified, uncomplicated; F12.90 Cannabis use, unspecified, uncomplicated; Z79.4 Long term (current) use of insulin; Z79.84 Long term (current) use of oral hypoglycemic drugs; Z79.899 Other long term (current) drug therapy
CPT/HCPCS: 36415; 80048; 83735; 85025; 87636; 99284; S0119

== ENCOUNTER → 2022-02-13 | Outpatient (CLI) | payer OTHER ==
[2022-02-13 18:21] LABS: Basophils # (A) 0.13 X 10*3/uL (0.00-0.10); Basophils % (A) 1.4 %; Eosinophils # (A) 0.24 X 10*3/uL (0.04-0.35); Eosinophils % (A) 2.6 %; HCT 46.8 % (37.2-46.3); Immature Grans, Automated 2.7 %; Lymphocytes # (A) 2.44 X 10*3/uL (0.90-5.00); Lymphocytes % (A) 26.3 %; MCH 29.5 pg (27.0-32.0); MCHC 32.1 g/dL (32.0-37.0); MCV 91.9 fL (80.0-97.0); Monocytes # (A) 0.81 X 10*3/uL (0.20-1.00); Monocytes % (A) 8.7 %; NRBC Per 100 WBC 0 /100 WBCS (0.0-0.0); Neutrophils # (A) 5.41 X 10*3/uL (1.80-7.70); Neutrophils % (A) 58.3 %; Platelet Count 372 X 10*3/uL (140-440); RBC 5.09 X 10*6/uL (4.10-5.20); RDW 13.2 % (11.5-14.5); WBC 9.28 X 10*3/uL (4.50-10.00)
[2022-02-13 18:27] LABS: African American GFR (CKD) 82.8 (60.0-200.0); Anion Gap 12.3 mmol/L (10.00-18.00); Blood Urea Nitrogen 10.9 mg/dL (9.0-27.0); Carbon Dioxide 23.9 mmol/L (20.0-27.5); Non-African American GFR(CKD) 71.4 (60.0-200.0); Potassium 4.1 mmol/L (3.5-5.5)
== END | disposition home or self-care (01) ==
LOC: LABPAT 10:54
PROVIDERS: ATTEND Obstetrics & Gynecology
DX: Z01.812 Encounter for preprocedural laboratory examination (principal); I10 Essential (primary) hypertension; N94.6 Dysmenorrhea, unspecified; N92.0 Excessive and frequent menstruation with regular cycle; N80.9 Endometriosis, unspecified
CPT/HCPCS: 36415; 80051; 82565; 82947; 84520; 85025; 87086

== ENCOUNTER 2022-12-24 07:58 | Emergency (ER) | payer OTHER ==
[2022-12-24 08:05] VITALS: PULSE 69; RESP 18; TEMP 98.5
[2022-12-24] MEDS ORDERED: KETOROLAC 15 MG/ML 1 ML VIAL IM STA (08:31)
[2022-12-24] MEDS ORDERED: HYDROmorphone 0.5 MG/0.5 ML SYRINGE IVP STA (08:31)
--- NOTE | 2022-12-24 09:01 | ED ---
General Adult HPI - General Chief complaint: Abdominal Pain Stated complaint: Poss Shingles Time Seen by Provider: 12/24/22 08:05 Source: patient, RN notes reviewed, old records reviewed Mode of arrival: ambulatory Limitations: no limitations - History of Present Illness Initial comments: This is a 47-year-old female presents emergency Department complaining of some pain in the mons pubis on the right only. Patient states she's noticed rash or worse if she had shingles. Patient states the pain radiates from there all the way around to her back in a dermatomal pattern. Patient states it's only been ongoing since chest. Patient states the pain is quite significant and touching it is very tender. Patient denies any rash on the left side of her body. Eyes any fever chills. Patient denies any other complaints. - Related Data Home Medications Medication Instructions Recorded Confirmed Loratadine [Claritin] 10 mg PO DAILY PRN 05/12/18 02/20/22 glipiZIDE [Glucotrol] 10 mg PO AC-BID 05/12/18 02/20/22 Bisoprolol/Hydrochlorothiazide 1 each PO QAM 02/16/22 02/20/22 [Ziac 2.5-6.25 MG] Cetirizine HCl [Zyrtec] 10 mg PO DAILY PRN 02/16/22 02/20/22 Previous Rx's Medication Instructions Recorded valACYclovir HCL [Valacyclovir] 1,000 mg PO TID #21 tab 12/24/22 Allergies Allergy/AdvReac Type Severity Reaction Status Date / Time cat dander Allergy Dyspnea Verified 12/24/22 08:05 dog dander Allergy Dyspnea Verified 12/24/22 08:05 Review of Systems ROS Statement: Those systems with pertinent positive or pertinent negative responses have been documented in the HPI. ROS Other: All systems not noted in ROS Statement are negative. Past Medical History Past Medical History: Hypertension Additional Past Medical History / Comment(s): endimetriosis, kidney stones. restless leg, left temporal lobe abnormality History of Any Multi-Drug Resistant Organisms: ESBL Date of last positivie culture/infection: 01/26/16-ESBL E.coli MDRO Source:: Urine Past Surgical History: Cholecystectomy, Hysterectomy Additional Past Surgical History / Comment(s): surgery for endometriosis 1997, kidney stones removed 2012 Past Anesthesia/Blood Transfusion Reactions: No Reported Reaction Additional Past Anesthesia/Blood Transfusion Reaction / Comment(s): pt declines any blood or blood products. Patient would rather not have any blood products. Past Psychological History: Anxiety Smoking Status: Former smoker Past Alcohol Use History: Occasional Past Drug Use History: Marijuana - Past Family History Father Family Medical History: Hyperlipidemia Additional Family Medical History / Comment(s): cataracts Mother Additional Family Medical History / Comment(s): aneurism of heart General Exam - General Exam Comments Initial Comments: GENERAL Patient is well-developed and well-nourished. Patient is in mild distress. EYES Patient's pupils are equal and round. Extraocular motion is intact Genitalia On the right side of the mons pubis there is a cluster of vesicular lesions very tender to palpation erythematous base as well. There is none on the left side SKIN Unremarkable NEURO The patient is alert and oriented 3 PYSCH Patient has normal interpersonal interactions. MUSCULOSKELETAL All 4 times and full range of motion. Limitations: no limitations Course Vital Signs 12/24/22 08:02 Temperature 98.5 F Pulse Rate 69 Respiratory 18 Rate Blood Pressure 163/96 O2 Sat by Pulse 99 Oximetry Medical Decision Making - Medical Decision Making Was pt. sent in by a medical professional or institution (, PA, BRICK PAVING CHECKER, urgent care, hospital, or skilled nursing...) When possible be specific @ -No Did you speak to anyone other than the patient for history (EMS, parent, family, police, friend...)? What history was obtained from this source @ -No Did you review nursing and triage notes (agree or disagree)? Why? @ -I reviewed and agree with nursing and triage notes Were old charts reviewed (outside hosp., previous admission, EMS record, old EKG, old radiological studies, urgent care reports/EKG's, skilled nursing records)? Report findings @ -No old charts were reviewed Differential Diagnosis (chest pain, altered mental status, abdominal pain women, abdominal pain men, vaginal bleeding, weakness, fever, dyspnea, syncope, headache, dizziness, GI bleed, back pain, seizure, CVA, palpatations, mental health, musculoskeletal)? @ -Herpes zoster, herpes simplex, viral exanthem, folliculitis EKG interpreted by me (3pts min.). @ -As above X-rays interpreted by me (1pt min.). @ -None done CT interpreted by me (1pt min.). @ -None done U/S interpreted by me (1pt. min.). @ -None done What testing was considered but not performed or refused? (CT, X-rays, U/S, labs)? Why? @ -None What meds were considered but not given or refused? Why? @ -None Did you discuss the management of the patient with other professionals (professionals i.e. Dr., PA, BRICK PAVING CHECKER, lab, RT, psych nurse, manager social, rink rat, teacher, senior grants officer, skilled nursing case manager)? Give summary @ -No Was smoking cessation discussed for >3mins.? @ -No Was critical care preformed (if so, how long)? @ -No Were there social determinants of health that impacted care today? How? (Homelessness, low income, unemployed, alcoholism, drug addiction, transportation, low edu. Level, literacy, decrease access to med. care, skilled nursing, rehab)? @ -No Was there de-escalation of care discussed even if they declined (Discuss DNR or withdrawal of care, Hospice)? DNR status @ -No What co-morbidities impacted this encounter? (DM, HTN, Smoking, COPD, CAD, Cancer, CVA, ARF, Chemo, Hep., AIDS, mental health diagnosis, sleep apnea, morbid obesity)? @ -None Was patient admitted / discharged? Hospital course, mention meds given and route, prescriptions, significant lab abnormalities, going to OR and other pertinent info. @ -Patient will be discharged home after getting a valacyclovir prescription. Patient in the hospital received a shot of Toradol and Dilaudid as well as had a PCR test for herpes simplex 1 and 2 Undiagnosed new problem with uncertain prognosis? @ -No Drug Therapy requiring intensive monitoring for toxicity (Heparin, Nitro, Insulin, Cardizem)? @ -No Were any procedures done? @ -No Diagnosis/symptom? @ -Zoster Acute, or Chronic, or Acute on Chronic? @ -Acute Uncomplicated (without systemic symptoms) or Complicated (systemic symptoms)? @ -Uncomplicated Side effects of treatment? @ -No Exacerbation, Progression, or Severe Exacerbation? @ -No Poses a threat to life or bodily function? How? (Chest pain, [place], [place], pneumonia, PE, COPD, DKA, ARF, appy, cholecystitis, CVA, Diverticulitis, Homicidal, Suicidal, threat to staff... and all critical care pts) @ -No Disposition Clinical Impression: Herpes zoster Disposition: HOME SELF-CARE Condition: Good Instructions (If sedation given, give patient instructions): Shingles (ED) Prescriptions: valACYclovir HCL [Valacyclovir] 1,000 mg PO TID #21 tab Is patient prescribed a controlled substance at d/c from ED?: No Referrals: Ruth Zavala MD [Primary Care Provider] - 1-2 days Time of Disposition: 08:59
[2022-12-24] MEDS ORDERED: ACET/COD 300 MG/30 MG STARTER PACK 6 TAB BTL PO STA (09:04)
[2022-12-24 09:26] VITALS: BP 195/101
== END 2022-12-24 09:26 | disposition home or self-care (01) ==
LOC: EC 07:58
DX: B02.9 Zoster without complications (principal); I10 Essential (primary) hypertension; F41.9 Anxiety disorder, unspecified; F12.90 Cannabis use, unspecified, uncomplicated; Z79.84 Long term (current) use of oral hypoglycemic drugs; Z79.899 Other long term (current) drug therapy; Z87.891 Personal history of nicotine dependence
CPT/HCPCS: 87529; 99284; 96374; 96372; J1885; J1170

== ENCOUNTER 2023-09-14 08:03 | Emergency (ER) | payer OTHER ==
[2023-09-14 08:31] VITALS: RESP 18
[2023-09-14] MEDS ORDERED: SODIUM CHLORIDE 0.9% 1,000 ML IV STA (08:33)
[2023-09-14] MEDS ORDERED: LORazepam 2 MG/ML INJ IV STA ×2 (08:34→12:58)
[2023-09-14] MEDS ORDERED: ONDANSETRON 4 MG/2 ML VIAL IVP STA (08:38)
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
[2023-09-14 09:08] LABS: Basophils # (A) 0.1 k/uL (0-0.2); Basophils % (A) 1 %; Eosinophils # (A) 0.3 k/uL (0-0.7); Eosinophils % (A) 3 %; HCT 46.3 % (34.0-46.0); HGB 15.4 gm/dL (11.4-16.0); Lymphocytes # (A) 1.8 k/uL (1.0-4.8); Lymphocytes % (A) 18 %; MCH 30.1 pg (25.0-35.0); MCHC 33.3 g/dL (31.0-37.0); MCV 90.3 fL (80.0-100.0); Mean Platelet Volume 8.1; Monocytes # (A) 0.7 k/uL (0-1.0); Monocytes % (A) 7 %; Neutrophils # (A) 7.2 k/uL (1.3-7.7); Neutrophils % (A) 70 %; Platelet Count 352 k/uL (150-450); RBC 5.13 m/uL (3.80-5.40); RDW 13.4 % (11.5-15.5); WBC 10.3 k/uL (3.8-10.6)
[2023-09-14 09:26] LABS: INR 0.9 (<1.2); Prothrombin Time 10.5 sec (10.0-12.5)
[2023-09-14 09:27] LABS: ALT 13 U/L (4-34); AST 20 U/L (14-36); African American GFR (CKD) >90 (>60 ml/min/1.73 sqM); Albumin 4.2 g/dL (3.5-5.0); Alkaline Phosphatase 68 U/L (38-126); Anion Gap 11 mmol/L; Blood Urea Nitrogen 16 mg/dL (7-17); Carbon Dioxide 22 mmol/L (22-30); Chloride 107 mmol/L (98-107); Glucose 128 mg/dL (74-99); Non-African American GFR(CKD) >90 (>60 ml/min/1.73 sqM); Potassium 4.6 mmol/L (3.5-5.1); Sodium 140 mmol/L (137-145); Total Bilirubin 0.8 mg/dL (0.2-1.3); Total Protein 6.9 g/dL (6.3-8.2)
--- NOTE | 2023-09-14 09:55 | CT ---
EXAMINATION TYPE: CT brain wo con CT DLP: 1138.4 mGycm, Automated exposure control for dose reduction was used. DATE OF EXAM: 09/14/2023 9:36 AM COMPARISON: None. CLINICAL INDICATION:Female, 48 years old with history of Dizziness, unsteady gait, DIZZY TECHNIQUE: Brain: Axial CT images of the brain were obtained with coronal and sagittal reformats created and rev iewed. Contrast used: None. Oral contrast used: None. FINDINGS: Extra-axial spaces: No abnormal extra-axial fluid collections. Ventricular system: Within normal limits. Cerebral parenchyma: No increased attenuation to suggest acute intraparenchymal hemorrhage. The gra y-white matter interface appears maintained. No significant atrophy. White matter unremarkable by C T. Cerebellum: No acute abnormality. Mass effect: No evidence of mass effect or midline shift. Intracranial vasculature: Unremarkable Soft tissues: Normal. Visualized orbits: Orbital contents appear grossly intact. Calvarium/osseous structures: No evidence of calvarial fracture or destructive lesion. There is mild hyperostosis frontalis as well as benign-appearing cortical broad-based rounded outgrowths from the r ight frontal bone superiorly measuring up to 15 mm, and posteriorly up to 12.5 mm. Paranasal sinuses and mastoid air cells: Clear MRI is more sensitive for detecting acute processes such as infarct, and may be considered if clinica lly warranted. IMPRESSION: No acute intracranial CT abnormality.
[2023-09-14] MEDS ORDERED: KETOROLAC 15 MG/ML 1 ML VIAL IVP STA (10:57)
[2023-09-14] MEDS ORDERED: MECLIZINE 12.5 MG TAB PO STA (11:59)
[2023-09-14 12:13] LABS: Appearance,Urine Clear (Clear); Color,Urine Yellow; Specific Gravity,Urine 1.015 (1.001-1.035)
[2023-09-14 12:14] LABS: Bilirubin,Urine Negative (Negative); Blood,Urine Negative (Negative); Glucose,Urine (UA) Negative (Negative); Ketones,Urine Negative (Negative); Leukocyte Esterase,Urine Negative (Negative); Nitrite,Urine Negative (Negative); Protein,Urine Negative (Negative); Urobilinogen,Urine 0.2 mg/dL (<2.0)
[2023-09-14 13:28] VITALS: BP 158/76; PULSE 60
[2023-09-14 14:16] VITALS: TEMP 98.4
== END 2023-09-14 14:32 | disposition home or self-care (01) ==
LOC: EC 08:03
DX: F41.9 Anxiety disorder, unspecified (principal); R42 Dizziness and giddiness; I10 Essential (primary) hypertension; R26.2 Difficulty in walking, not elsewhere classified; I25.2 Old myocardial infarction; F12.90 Cannabis use, unspecified, uncomplicated; Z87.891 Personal history of nicotine dependence; Z20.822 Contact with and (suspected) exposure to COVID-19; Z79.899 Other long term (current) drug therapy; Z88.8 Allergy status to other drugs, medicaments and biological substances
CPT/HCPCS: 36415; 93005; 80053; 83605; 84484; 85025; 85610; 81003; 87636; 70450; 99284; 96374; 96375 ×2; 96376; 96361; J2060; J2405; J1885

== ENCOUNTER → 2024-06-18 | Outpatient (CLI) | payer BC ==
[2024-06-18 15:09] LABS: Basophils # (A) 0.15 X 10*3/uL (0.00-0.10); Basophils % (A) 1.9 %; Eosinophils # (A) 0.24 X 10*3/uL (0.04-0.35); HCT 45.9 % (37.2-46.3); HGB 15.3 g/dL (12.0-15.0); Lymphocytes # (A) 2.21 X 10*3/uL (0.90-5.00); Lymphocytes % (A) 27.4 %; MCH 29.6 pg (27.0-32.0); MCHC 33.3 g/dL (32.0-37.0); MCV 88.8 FL (80.0-97.0); Mean Platelet Volume 10.1 FL (9.5-12.2); Monocytes # (A) 0.75 X 10*3/uL (0.20-1.00); Monocytes % (A) 9.3 %; NRBC Per 100 WBC 0 X 10*3/uL (0.00-0.01); Neutrophils # (A) 4.67 X 10*3/uL (1.80-7.70); Neutrophils % (A) 57.8 %; Platelet Count 380 X 10*3/uL (140-440); RBC 5.17 X 10*6/uL (4.10-5.20); RDW 12.8 % (11.5-14.5); WBC 8.07 X 10*3/uL (4.50-10.00)
[2024-06-18 16:02] LABS: ALT 10 U/L (8-44); AST 18 U/L (13-35); Albumin 4.4 g/dL (3.8-4.9); Albumin/Globulin Ratio 1.91 Ratio (1.60-3.17); Alkaline Phosphatase 77 U/L (41-126); Blood Urea Nitrogen 12.9 mg/dL (9.0-27.0); Calcium 10.4 mg/dL (8.7-10.3); Chloride 105 mmol/L (96-109); Chol/HDL Ratio 2.95 Ratio; Globulin 2.3 g/dL (1.6-3.3); Glucose 114 mg/dL (70-110); LDL Cholesterol,Calculated 70.6 mg/dL (0.0-131.0); Potassium 4.7 mmol/L (3.5-5.5); Sodium 140 mmol/L (135-145); Total Bilirubin 0.6 mg/dL (0.3-1.2); Total Protein 6.7 g/dL (6.2-8.2)
== END | disposition home or self-care (01) ==
LOC: LABWHC1 08:40
PROVIDERS: ATTEND Family Medicine
DX: Z00.00 Encounter for general adult medical examination without abnormal findings (principal)
CPT/HCPCS: 36415; 80053; 80061; 82306; 84439; 84443; 85025